=== PATIENT | female | born 1930 | race Caucasian/White ===

== ENCOUNTER 2017-03-01 15:21 | Observation (INO) | payer OTHER ==
[~2017-03-01] VITALS: Ht 172.7 cm; Wt 90.7 kg
[~2017-03-01 15:21] MED LIST: ASPIR 8181 MG PO; ASPIRIN EC81 M1 PO; BUSPIRONE HCL10 M1 PO; CARDIZEM CD240 M1 PO; ELIQUIS5 M1 PO; KEFLEX500 MG PO; LEVOTHYROXINE0.1 M1 PO; LEVOTHYROXINE112 MCG PO; LOSARTAN POTASS50 M1 PO; LOSARTAN POTASS50 MG PO; NIFEDICAL XL30 MG PO; NIFEDIPINE ER30 M2 PO; ONDANSETRON HCL4 MG; PROAIR HFA8.5 GM INH; SYMBICORT 80-10.2 GM INH; VENLAFAXINE H37.5 M4 PO
--- NOTE | 2017-03-01 16:04 | ED DYSPNEA/ASTHMA COMPLAINT ---
History of Present Illness General Chief Complaint: Dyspnea (COPD, CHF, Other) Stated Complaint: DIFFICULTY BREATHING Source: patient, family, old records Exam Limitations: no limitations Allergies Coded Allergies: hydrochlorothiazide (Severe, PANCREATITIS 02/21/17) Reconcile Medications Albuterol Sulfate (Proair Hfa) 90 MCG HFA.AER.AD 1-2 PUF INH AD PRN RESP. ( Reported) Apixaban (Eliquis) 5 MG TABLET 5 MG PO BID Atrial Fibrilliation Aspirin (Ecotrin*) 81 MG TABLET.DR 1 TAB PO QAM HEART/BLOOD (Reported) Budesonide/Formoterol Fumarate (Symbicort 80-4.5 Mcg Inhaler) 80 MCG-4.5 MCG/ ACTUATION HFA.AER.AD 2 PUF INH BID SOB/BRONCHITIS (Reported) Buspirone HCl 10 MG TABLET 1 TAB PO BID MENTAL HEALTH (Reported) Diltiazem HCl (Cardizem Cd) 240 MG CAP.ER.24H 240 MG PO DAILY Atrial Fibrilliation Levothyroxine Sodium 112 MCG TABLET 1 TAB PO DAILY THYROID (Reported) Losartan Potassium 50 MG TABLET 1 TAB PO BID BP (Reported) Venlafaxine HCl (Venlafaxine HCl ER) 37.5 MG CAP.ER.24H 1 CAP PO QPM MENTAL HEALTH (Reported) Triage Note: PT TO TRIAGE WITH HER DAUGHTER PT WAS DISCHARGED THURSDAY AFTER 1 WEEK IN PATIENT FOR NEW ONSET AFIB, PT RETURNS TODAY DUE TO SOB/ O2 SAT 94 % ON RA, PT COMPLAINS OF NAUSEA AND FEELING SOB. DENIES CP. PT TAKES XARELTO Triage Nurses Notes Reviewed? yes Onset: Gradual Duration: day(s): Timing: recent history Severity: moderate : No Patient currently breastfeeds: No HPI: 86-year-old female with history of recent diagnosis of A. fib on our question diltiazem presents to emergency department complaining of shortness of breath and "sick" feeling. Patient states that her symptoms feel similar to the last time she was here on 02/21/17. Patient was admitted on that day for new onset A. fib, cardioversion was attempted which was unsuccessful. The patient was discharged on 02/27/17 which time she had felt slightly better however her symptoms have worsened again despite her new medications. She states that she feels nauseous with abdominal pain and upper abdomen, the same feeling as her last visit. Shortness of breath is sometimes worse with exertion. The patient denies chest pain, fall, syncope, lower leg swelling, vomiting, diarrhea. (Kristina Shaw) Vital Signs & Intake/Output Vital Signs & Intake/Output Vital Signs Date Time Temp Pulse Resp B/P B/P Pulse O2 O2 Flow FiO2 Mean Ox Delivery Rate 03/02 0030 104 130/58 03/01 2300 97.1 104 20 130/58 96 Nasal 2.0L Cannula 03/01 2259 96.2 101 16 139/71 94 Nasal 2.0L Cannula 03/01 2130 97.9 107 24 120/68 92 Nasal 2.0L Cannula 03/01 1827 97.8 98 20 181/85 98 Nasal Cannula 03/01 1547 Nasal 2.0L Cannula 03/01 1528 97.0 100 20 144/88 94 Room Air ED Intake and Output 03/02 0000 03/01 1200 Intake Total 0 Output Total Balance 0 Intake, Oral 0 Patient 200 lb Weight (Yamilet MEIER,Khadar Shell) Past History Travel History Traveled to [place] past 21 day No Medical History Any Pertinent Medical History? 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 SON (ID). Hx Contributory? No (Kristina Shaw) Review of Systems Review of Systems Constitutional: Reports: no symptoms. EENTM: Reports: no symptoms. Respiratory: Reports: see HPI. Cardiovascular: Reports: see HPI. GI: Reports: see HPI. Genitourinary: Reports: no symptoms. Musculoskeletal: Reports: no symptoms. Skin: Reports: no symptoms. Neurological/Psychological: Reports: no symptoms. Hematologic/Endocrine: Reports: no symptoms. Immunologic/Allergic: Reports: no symptoms. All Other Systems: Reviewed and Negative (Kristina Shaw) Physical Exam Physical Exam General Appearance: well developed/nourished, no apparent distress, alert, awake Head: atraumatic, normal appearance Eyes: Bilateral: normal appearance. Ears, Nose, Throat: hearing grossly normal Neck: normal inspection, supple, full range of motion Respiratory: normal breath sounds, no respiratory distress, faint crackles bilateral posterior lung bases Cardiovascular: tachycardia, irregularly irregular Peripheral Pulses: 2+ radial (R), 2+ radial (L) Gastrointestinal: normal bowel sounds, soft, non-tender, no organomegaly, exam limited d/t obesity Extremities: normal inspection, normal range of motion, 1+ edema bilateral lower extremities Neurologic/Psych: awake, alert, oriented x 3 Skin: intact, normal color, warm/dry Core Measures ACS in differential dx? Yes CVA/TIA Diagnosis No Sepsis Present: No Sepsis Focused Exam Completed? No (Stormy CHAMPION,Kristina Gaytan) Progress Differential Diagnosis: asthma, AMI, bronchitis, CHF, COPD, pulmonary embolism, pneumonia, unstable angina, atrial fibrillation Diagnostic Imaging: Viewed by Me: Radiology Read. Discussed w/RAD: Radiology Read. Radiology Impression: PATIENT: VIRGIE MENDES PRESENT AGE: 86 PATIENT ACCOUNT NO: [id number] : 31 LOCATION: [facility] ORDERING PHYSICIAN: Kristina CHAMPION SERVICE DATE: 03/01/17 EXAM TYPE: RAD - XRY-PORTABLE CHEST XRAY EXAMINATION: XR PORTABLE CHEST CLINICAL INFORMATION: Dyspnea. COMPARISON: Chest radiographs 02/21/2017, 01/19/2017. TECHNIQUE: Portable AP view of the chest was obtained. FINDINGS: There is opacity right base likely combination of atelectasis and airspace consolidation. There is small linear disc atelectasis or scar inferior lingula on left. Mild increased bibasilar attenuation is likely due to superimposed overlying soft tissues. Possibility of trace right effusion cannot be excluded. The heart is enlarged but unchanged from prior study. The vascularity is normal. The hilar and mediastinal contours and bony structures are stable. IMPRESSION: Opacity right base likely combination of atelectasis and airspace consolidation. Possible trace right effusion. DICTATED BY: Jean Paul Hansen MD DATE/TIME DICTATED:1656 CHANGE MANAGEMENT ADMINISTRATOR:RAE DATE/TIME TRANSCRIBED:12/17/17 / 1657 CONFIDENTIAL, DO NOT COPY WITHOUT APPROPRIATE AUTHORIZATION. <Electronically signed in Other Vendor System> SIGNED BY: Jean Paul Hansen MD 03/01/17 1704 Initial ED EKG: atrial fibrillation @107bpm, nonspecific ST changes Prior EKG: unchanged (02/25/17) (Stormy CHAMPION,Kristina Gaytan) Plan of Care: Orders Procedure Date/time Status Nothing by Mouth 03/02 B Active TROPONIN LEVEL 03/02 0535 Active EKG 03/02 0535 Active LOWER RESPIRATORY CULTURE 03/02 0130 Active BLOOD CULTURE 03/02 0130 Active Vital Signs 03/02 011 Active Teach/Educate 03/02 117 Active Pain Treatment and Response 03/02 117 Active Nutritional Intake, Monitor 03/02 117 Active Isolation 03/02 117 Active Intake & Output 03/02 117 Active Patient Care Conference 03/02 117 Active Activity/Ambulation 03/02 117 Active TRC EVALUATION (GEN) 03/02 UNK Active Heart Healthy Diet 03/01 D Complete TROPONIN LEVEL 03/01 2335 Complete EKG 03/01 2335 Active RAPID VIRAL INFLUENZA A 03/01 2222 Complete INCENTIVE SPIROMETRY TRX (GEN) 03/01 2135 Active Add-on Test (ER Only) 03/01 2134 Active Pathway - chart 03/01 2046 Active House Staff 03/01 2046 Active Patient Data 03/01 2046 Active Patient Data 03/01 2022 Active Saline Lock 03/[address] in observation 03/01 2010 Active Misc Message 03/01 2010 Active ED Holding Orders 03/01 2010 Active Vital Signs 03/01 2010 Active Code Status 03/01 2010 Active LACTIC ACID 03/01 1735 Complete B-TYPE NATRIURETIC PEP (BNP) 03/01 1735 Complete Telemetry/Engraving Patternmaker 03/01 1604 Active TROPONIN LEVEL 03/01 1604 Complete LIPASE 03/01 1604 Complete COMPREHENSIVE METABOLIC PANEL 03/01 1604 Complete CBC WITHOUT DIFFERENTIAL 03/01 1604 Complete Intake & Output 03/01 1551 Active EKG 03/01 1522 Active VTE Mechanical Prophylaxis 03/01 UNK Active Vital Signs 03/01 UNK Active MISTAKE 03/01 UNK Active Telemetry/Engraving Patternmaker 03/01 UNK Active Intake & Output 03/01 UNK Active [facility] Coma Scale 03/01 UNK Active Current Medications Sig/Peter Start time Last Medication Dose Stop Time Status Admin Aspirin Buffered 81 MG QAM 03/02 1000 AC (Ecotrin) Azithromycin 500 MG DAILY 03/02 1000 AC (Zithromax) 03/06 1059 Sodium Chloride 250 ML (Normal Saline 0.9%) Diltiazem HCl 240 MG DAILY 03/02 1000 AC (Cardizem CD) Levothyroxine Sodium 0.112 MG DAILY AC 03/02 0700 AC (Synthroid) Venlafaxine HCl 37.5 MG QPM 03/02 0145 AC 03/02 (Effexor Xr) 0200 Losartan Potassium 50 MG BID 03/01 2315 AC 03/02 (Cozaar) 0030 Methylprednisolone 40 MG Q12 03/01 2307 AC 03/02 (Solumedrol) 0030 Apixaban 5 MG BID 03/01 2240 AC 03/02 (Eliquis) 0030 Buspirone HCl 10 MG BID 03/01 2240 AC 03/02 (Buspar) 0030 Omeprazole 40 MG DAILY 03/01 2145 AC 03/02 (Prilosec) 0030 Laboratory Tests 03/02/17 0120: Troponin I < 0.01 03/01/17 1735: Anion Gap 17 H, Estimated GFR 47 L, BUN/Creatinine Ratio 11.8, Glucose 113 H, Lactic Acid 1.2, Calcium 9.5, Total Bilirubin 0.5, AST 16, ALT 28, Alkaline Phosphatase 107, Troponin I < 0.01, Bpv-I-Rsnghnrafhx Pept 3240 H, Total Protein 7.0, Albumin 3.8, Globulin 3.2, Albumin/Globulin Ratio 1.2, Lipase 67, CBC w Diff NO MAN DIFF REQ, RBC 4.90, MCV 78.5 L, MCH 25.0 L, RDW 15.6 H, MPV 9.5, Gran % 79.7 H, Lymphocytes % 9.8 L, Monocytes % 10.1 H, Eosinophils % 0.1, Basophils % 0.3, Absolute Granulocytes 8.8 H, Absolute Lymphocytes 1.1 L, Absolute Monocytes 1.1 H, Absolute Eosinophils 0, Absolute Basophils 0, PUBS MCHC 31.8 L Microbiology 03/02 013 LOWER RESP: Respiratory Culture - ORD 03/02 130 LOWER RESP: Gram Stain - ORD 03/02 130 BLOOD: Blood Culture - ORD 03/02 130 BLOOD: Blood Culture - ORD 12/17 2310 NASOPHARYN: Influenza Virus A & B Rapid Smear - COMP Patient's associated without acute abnormality. Patient's labs are within normal limits, troponin negative. Patient's EKG shows controlled atrial fibrillation. Patient oxygenation dropped to 89% with ambulation and her heart rate was 120 bpm. Patient was symptomatic with dyspnea. This patient will likely require telemetry observation given her symptoms and persistent atrial fibrillation. Spoke with Dr. Mcintosh regarding this patient who will consult. Called case management. Dr. Castillo spoke with Dr. Moreno regarding this patient's telemetry observation. (Kristina Shaw) (Yamilet MEIER,Khadar Shell) Departure Departure Disposition: STILL A PATIENT Condition: Stable Clinical Impression Primary Impression: Atrial fibrillation Qualifiers: Atrial fibrillation type: unspecified Qualified Code: I48.91 - Unspecified atrial fibrillation Secondary Impressions: Abdominal pain Qualifiers: Abdominal location: unspecified location Qualified Code: R10.9 - Unspecified abdominal pain Dyspnea Qualifiers: Dyspnea type: dyspnea on exertion Qualified Code: R06.09 - Other forms of dyspnea Nausea Referrals: Jose Antonio Huynh MD (PCP/Family) Departure Forms: Customer Survey General Discharge Information Observation Note Spoke With: Abdias MEIER,[facility] Patient In: Non-ED OBS Care Area Rationale for Observation: My rational for observation is as follows [this patient requires telemetry observation. Patient with atrial fibrillation and dyspnea. Dyspnea is worse with ambulation, associated with low oxygen saturation of 89% and tachycardia, requires serial troponins, repeat EKGs, telemetry monitoring, cardiology consult , possible GI consult regarding abdominal pain]. (Kristina Shaw) PA/AIRCRAFT TIME CLERK Co-Sign Statement Statement: ED Attending supervision documentation- [X] I saw and evaluated the patient. I have also reviewed all the pertinent lab results and diagnostic results. I agree with the findings and the plan of care as documented in the PA's/AIRCRAFT TIME CLERK's documentation. Patient presents for evaluation of shortness of breath weakness and nausea and discomfort over the upper abdomen that began shortly after discharge from [facility] (patient was diagnosed with new-onset atrial fibrillation). Physical examination reveals no abdominal tenderness, clear lungs and irregular heart rate. [] I have reviewed the ED Record and agree with the PA's/AIRCRAFT TIME CLERK's documentation. [] Additions or exceptions (if any) to the PAs/AIRCRAFT TIME CLERK's note and plan are summarized below: [] (Yamilet MEIER,Khadar Shell) PA/AIRCRAFT TIME CLERK Co-Sign Statement Statement: ED Attending supervision documentation- [x] I saw and evaluated the patient. I have also reviewed all the pertinent lab results and diagnostic results. I agree with the findings and the plan of care as documented in the PA's/AIRCRAFT TIME CLERK's documentation. 03/01/17, 7:10pm... Pt with afib, hypoxia and tachycardia with ambulation, irregularly irregular on exam, pt merits observation for serial trops, monitoring, medication optimization. [] I have reviewed the ED Record and agree with the PA's/AIRCRAFT TIME CLERK's documentation. [] Additions or exceptions (if any) to the PAs/AIRCRAFT TIME CLERK's note and plan are summarized below: [] (Anna MEIER,Christoph Neal) Critical Care Note Critical Care Note Critical Care Time: non-applicable (Stormy CHAMPION,Kristina Gaytan)
--- NOTE | 2017-03-01 17:04 | RADIOLOGY REPORT ---
EXAMINATION: XR PORTABLE CHEST CLINICAL INFORMATION: Dyspnea. COMPARISON: Chest radiographs 02/21/2017, 01/19/2017. TECHNIQUE: Portable AP view of the chest was obtained. FINDINGS: There is opacity right base likely combination of atelectasis and airspace consolidation. There is small linear disc atelectasis or scar inferior lingula on left. Mild increased bibasilar attenuation is likely due to superimposed overlying soft tissues. Possibility of trace right effusion cannot be excluded. The heart is enlarged but unchanged from prior study. The vascularity is normal. The hilar and mediastinal contours and bony structures are stable. IMPRESSION: Opacity right base likely combination of atelectasis and airspace consolidation. Possible trace right effusion.
[2017-03-01 17:44] LABS: ABSOLUTE BASOPHIL COUNT 0 /CUMM (0.0-0.2); ABSOLUTE EOSINOPHIL COUNT 0 /CUMM (0.0-0.7); ABSOLUTE GRANULOCYTE CT 8.8 /CUMM (1.4-6.5); ABSOLUTE LYMPH COUNT 1.1 /CUMM (1.2-3.4); ABSOLUTE MONOCYTE COUNT 1.1 /CUMM (0.10-0.60); BASOPHIL % 0.3 % (0.0-2.0); EOSINOPHIL % 0.1 % (0-5); GRANULOCYTE % 79.7 % (42.2-75.2); HEMATOCRIT 38.5 % (37-47); MEAN CORPUSCULAR HGB CONC 31.8 G/DL (33.0-37.0); MEAN CORPUSCULAR VOLUME 78.5 FL (81.0-99.0); MEAN PLATELET VOLUME 9.5 FL (7.4-10.4); PLATELET COUNT 455 /CUMM (130-400); RBC DISTRIBUTION WIDTH 15.6 % (11.5-14.5)
--- NOTE | 2017-03-01 20:31 | History & Physical ---
Socorro Duncan 03/01/17 2030: General Information and HPI MD Statement: I have seen and personally examined VIRGIE MENDES and documented this H&P. Source of Information: patient, old records Exam Limitations: no limitations History of Present Illness: This is an 86-year-old lady with past medical history significant for recently diagnosed atrial fibrillation, hypertension, hypothyroidism, chronic back pain, discharge from [facility] 02/27/2017 for new-onset atrial fibrillation w/ RVR who presents to the [facility] with worsening of dyspnea. She presented to [facility] recently on 02/21/2017 for nonspecific abdominal pain and nausea was noted to be in atrial fibrillation with RVR. She underwent a trial of cardioversion which was unsuccessful. The patient states that her symptoms including nausea and nonspecific abdominal pain improved while she stayed in the hospital however started worsening after her discharge. She reports having nausea with mild abdominal generalized discomfort. She developed new-onset dyspnea which is worsened with movement. She also had cough with clear/white colored sputum. She reports having one episode of vomitus one day prior to her presentation, feels nauseated at the time of our interview. She denies any fever, chills, headache, dizziness, lightheadedness, episode of syncope, chest pain, chest discomfort, palpitation, urinary symptoms, lower extremity edema, diarrhea. Allergies/Medications Allergies: Coded Allergies: hydrochlorothiazide (Severe, PANCREATITIS 02/21/17) Home Med list Albuterol Sulfate (Proair Hfa) 90 MCG HFA.AER.AD 1-2 PUF INH AD PRN RESP. ( Reported) Apixaban (Eliquis) 5 MG TABLET 5 MG PO BID Atrial Fibrilliation Aspirin (Ecotrin*) 81 MG TABLET.DR 1 TAB PO QAM HEART/BLOOD (Reported) Budesonide/Formoterol Fumarate (Symbicort 80-4.5 Mcg Inhaler) 80 MCG-4.5 MCG/ ACTUATION HFA.AER.AD 2 PUF INH BID SOB/BRONCHITIS (Reported) Buspirone HCl 10 MG TABLET 1 TAB PO BID MENTAL HEALTH (Reported) Diltiazem HCl (Cardizem Cd) 240 MG CAP.ER.24H 240 MG PO DAILY Atrial Fibrilliation Levothyroxine Sodium 112 MCG TABLET 1 TAB PO DAILY THYROID (Reported) Losartan Potassium 50 MG TABLET 1 TAB PO BID BP (Reported) Venlafaxine HCl (Venlafaxine HCl ER) 37.5 MG CAP.ER.24H 1 CAP PO QPM MENTAL HEALTH (Reported) Past History Travel History Traveled to [place] past 21 day No Medical History Neurological: NONE EENT: NONE Cardiovascular: hypertension Respiratory: NONE Gastrointestinal: pancreatitis Hepatic: NONE Renal: NONE Musculoskeletal: rheumatoid arthritis Psychiatric: anxiety Endocrine: NONE Blood Disorders: NONE Cancer(s): NONE 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 SON (SD). Psychosocial History ETOH Use: denies use Illicit Drug Use: denies illicit drug use Functional Ability Ambulation: cane, walker Review of Systems Review of Systems Constitutional: Denies: chills, diaphoresis, fever, malaise, weakness, unexplained weight loss. EENTM: Reports: no symptoms. Denies: nasal congestion. Cardiovascular: Denies: chest pain, edema, orthopena, palpitations, peripheral edema, syncope. Respiratory: Reports: cough, short of breath. Denies: hemoptysis, orthopnea, sputum production, stridor, wheezing. GI: Reports: see HPI. Genitourinary: Reports: no symptoms. Musculoskeletal: Reports: no symptoms. Skin: Reports: no symptoms. Neurological/Psychological: Reports: no symptoms. Hematologic/Endocrine: Reports: no symptoms. Immunologic/Allergic: Reports: no symptoms. All Other Systems: Reviewed and Negative Exam & Diagnostic Data Last 24 Hrs of Vital Signs/I&O Vital Signs Date Time Temp Pulse Resp B/P B/P Pulse O2 O2 Flow FiO2 Mean Ox Delivery Rate 03/01 2259 96.2 101 16 139/71 94 Nasal 2.0L Cannula 03/01 2130 97.9 107 24 120/68 92 Nasal 2.0L Cannula 03/01 1827 97.8 98 20 181/85 98 Nasal Cannula 03/01 1547 Nasal 2.0L Cannula 03/01 1528 97.0 100 20 144/88 94 Room Air Intake & Output 03/02 0800 03/02 0000 03/01 1600 Intake Total 0 Output Total Balance 0 Intake, Oral 0 Patient 200 lb Weight Physical Exam General Appearance Alert, Oriented X3, Cooperative, No Acute Distress Skin No Rashes Skin Temp/Moisture Exam: Warm/Dry Sepsis Skin Exam (color): Normal for Ethnicity HEENT Atraumatic, PERRLA, EOMI, Mucous Membr. moist/pink Neck Supple, No JVD, No thryomegaly, +2 Carotid Pulse wo Bruit, No LAD Lymphatic Cervical nl Cardiovascular irregular, no murmur Lungs mild crackles bilaterally, without any expiratory wheezes, mild expiratory wheezes Abdomen Normal Bowel Sounds, Soft, No Tenderness, No Hepatospenomegaly, No Masses Neurological Normal Speech, Strength at 5/5 X4 Ext, Normal Tone, Sensation Intact, Cranial Nerves 3-12 NL, Reflexes 2+ Extremities No Clubbing, No Cyanosis, No Edema, Normal Pulses Vascular Normal Pulses, Pulses Symmetrical Last 24 Hrs of Labs/Surya: Laboratory Tests 03/01/17 1735: Anion Gap 17 H, Estimated GFR 47 L, BUN/Creatinine Ratio 11.8, Glucose 113 H, Calcium 9.5, Total Bilirubin 0.5, AST 16, ALT 28, Alkaline Phosphatase 107, Troponin I < 0.01, Total Protein 7.0, Albumin 3.8, Globulin 3.2, Albumin/ Globulin Ratio 1.2, Lipase 67, CBC w Diff NO MAN DIFF REQ, RBC 4.90, MCV 78.5 L , MCH 25.0 L, RDW 15.6 H, MPV 9.5, Gran % 79.7 H, Lymphocytes % 9.8 L, Monocytes % 10.1 H, Eosinophils % 0.1, Basophils % 0.3, Absolute Granulocytes 8.8 H, Absolute Lymphocytes 1.1 L, Absolute Monocytes 1.1 H, Absolute Eosinophils 0, Absolute Basophils 0, PUBS MCHC 31.8 L Microbiology 03/01 2310 NASOPHARYN: Influenza Virus A & B Rapid Smear - COMP Diagnostic Data EKG Results Atrial fibrillation, rate 107, PVCs, no ST-T wave abnormalities noted, no significant change noted from prior EKG, QTC 443. CXR Results IMPRESSION: Opacity right base likely combination of atelectasis and airspace consolidation. Possible trace right effusion. Assessment/Plan Assessment: 86-year-old lady with past medical history significant for recently diagnosed atrial fibrillation, status post unsuccessful cardioversion, hypertension, hyperthyroidism presents to the hospital with worsening of dyspnea since her discharge day on 02/27/2017. Labs positive for mild leukocytosis with granulocytosis. Has elevated creatinine, however is at her baseline. Problem list/plan: #Acute hypoxic respiratory failure: Presented with worsening of dyspnea. Could be secondary to acute bronchitis versus pericardial effusion versus pulmonary hypertension versus possible acute heart failure. 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 * The patient reported to her attending Dr. Calero that she had EGD done 5 years ago and was diagnosed with ulcers. * Will start the patient on omeprazole * Consider GI evaluation if no improvement. #History of atrial fibrillation: * Recently diagnosed, status post unsuccessful cardioversion * Will continue [employer] aspirin, apixaban, diltiazem #Will continue with [employer] buspirone, levothyroxine, losartan, venlafaxine #DVT prophylaxis: Being addressed by apixaban #CODE STATUS: Patient is full code As Ranked By This Provider Problem List: 1. Atrial fibrillation Qualifiers Atrial fibrillation type: unspecified Qualified Code: I48.91 - Unspecified atrial fibrillation 2. Dyspnea Qualifiers Dyspnea type: dyspnea on exertion Qualified Code: R06.09 - Other forms of dyspnea Core Measures/Misc (11/30) Acute Coronary Syndrome ACS Diagnosis: No Congestive Heart Failure Congestive Heart Failure Diagnosis Yes Last Known EF % 65 Cerebrovascular Accident CVA/TIA Diagnosis: No VTE (View Protocol) VTE Risk Factors Age>40 No Mechanical VTE Prophylaxis d/t N/A MechProphylax Ordered No VTE Pharm Prophylaxis d/t NA PharmProphylax ordered Sepsis (View protocol) Sepsis Present: No Abdias MEIER, [facility] 03/02/17 0721: Attending MD Review Statement Attending Statement Attending MD Statement: examined this patient, discuss w/resident/PA/SECONDARY SPECIAL EDUCATION TEACHER, agreed w/resident/PA/SECONDARY SPECIAL EDUCATION TEACHER, reviewed images, amended to note Attending Assessment/Plan: 86 yo F who resides in [place] and has been visiting her daughter in [place] for last few months, h/o HTN, hypothyroidism, depression, CKD stage 3, HCTZ induced pancreatitis, chronic back pain, discharged on Feb 27 from [place] after being diagnosed with new onset atrial fibrillation, failed attempt at cardioversion, initiated on eliquis and cardizem, returns today for persistent nausea, upper abdominal discomfort and dyspnea with productive cough. Patient reports she had come in for similar symptoms earlier this month, imaging was negative but her symptoms have not resolved. She reports having EGD at [place] where she was found to have gastric and intestinal ulcers which were treated with ?ablation. She was to take prilosec and it unclear if she is taking it. She denies heartburn, melena, BRBPR, dysphagia, odynophagia or hematemesis. She denies abdominal bloating, states she had a BM and is passing gas. She cannot define her abdominal discomfort. She also reports bronchitis symptoms for which she was treated with antibiotics and steroids, but her symptoms persist with cough productive of clear to white phlegm. She was noted to have sats 89% on RA on ER arrival. Vitals: afebrile, HR 90-100's, BP 120/68, sats 95% on 2L. Exam: AAO, dyspneic with minimal exertion, mild JVD. Chest b/l scattered expiratory wheeze, basilar crackles+. Heart S1S2 irregularly irregular, heart sounds are not muffled. Abd soft, NT. LE: trace edema. Labs: WBC 11, bicarb 21, AG 17, BUN 13, creat 1.1 (baseline), trop neg, proBNP 3240, lipase normal. CXR: opacity right base likely combination of atelectasis and airspace consolidation, possible trace right effusion. EKG: Afib, PVC's. Echo (2017): EF 60-65%, RVSP 44 mmHg, mild to moderate TR, moderate sized circumferential pericardial effusion, small to moderate size left pleural effusion. Assessment and plan: 1. Hypoxia 2. Dyspnea seems multifactorial 3. Mild congestive heart failure (diastolic type) in the setting of atrial fibrillation 4. Pulmonary hypertension with moderate tricuspid insufficiency 5. Moderate pericardial effusion without tamponade physiology per recent echo 6. Bronchitis with possible COPD exacerbation she has no definitive diagnosis of COPD, but has been a smoker in the past 7. Nausea, upper abdominal discomfort of unclear etiology 8. Leukocytosis likely reactive 9. CKD stable - 23 hour observation on telemetry - O2 supplementation to keep sats > 92% - Serial EKG and troponin to rule out Acs - IV lasix one time, reassess need for diuresis in AM - Cardio consult - TRC nebs, IST - Check sputum culture, flu swab - IV steroids with azithro for 5 days - Outpatient PFT and Pulm eval. - Initiate omeprazole - CT abd/pelvis during most recent admission was unrevealing - Consider GI consult to further assess her GI symptoms DVT ppx Eliquis. Full code. Observation Initial Note - I have personally examined VIRGIE MENDES on 03/02/17 at 0721. The disposition of VIRGIE MENDES is uncertain at this time and before a determination can be made, she requires a period of observation for the following reasons [exertional dyspnea, hypoxia, nausea]
[2017-03-01 23:00] VITALS: BP 130/58
[2017-03-02] VITALS: BP 130/58
--- NOTE | 2017-03-02 07:31 | PN-Observation ---
Hamlet MEIER,[facility] 03/02/17 0731: Observation Note Observation Note _ I have personally examined VIRGIE MENDES. her disposition is uncertain at this time. Before a determination can be made, she requires continued observation for the following reasons [abdominal pain]. Assessment/Plan Assessment: 86-year-old lady with past medical history significant for recently diagnosed atrial fibrillation, hypertension, hypothyroidism, chronic back pain, discharge from [facility] 02/27/2017 presents to the ED for dyspnea and abdominal pain. Problem List: 1. Abdominal pain Qualifiers Abdominal location: unspecified location Qualified Code: R10.9 - Unspecified abdominal pain Plan: Plan: Abdominal Pain: * Unclear in etiology at this time. Patient currently reports that her pain has subsided. Physical exam in unremarkable. * continue oral PPI Dyspnea: * CXR shows opacity in the right base with airspace consolidation. This could be concerning for pneumonia. She does have a white count. * Will d/c steroids * Continue Azithromycin for a total of 3 days. * Start IV lasix 20mg BID * Influenza test was negative * Will follow up sputum and blood cultures. History of Atrial Fibrilliation: * Continue Apixaban * Continue Cardizem Diet: * Heart Healthy DVT Prophylaxis: * On Apixaban Code Status: Full Code Subjective Follow-up For: Nonspecific abdominal pain Tele-Events Since Last Visit: A.fib with heart rate 90-120s. Subjective: Patient was seen and examined at bedside. Currently she is not in any acute distress or pain. She was discharged on Thursday evening and states she started having abdominal pain with some nausea and one episode of vomiting on Thursday which compelled her to come to the ER last night. Review of Systems Constitutional: Reports: no symptoms. Objective Last 24 Hrs of Vital Signs/I&O Vital Signs Date Time Temp Pulse Resp B/P B/P Pulse O2 O2 Flow FiO2 Mean Ox Delivery Rate 03/02 0800 95 Nasal 2.0L Cannula 03/02 0732 96.9 112 20 156/66 95 Nasal 2.0L Cannula 03/02 0643 96.6 111 20 156/66 95 Nasal 2.0L Cannula 03/02 0030 104 130/58 03/02 0000 97.1 104 20 130/58 98 Nasal 2.0L Cannula 03/01 2300 97.1 104 20 130/58 96 Nasal 2.0L Cannula 03/01 2259 96.2 101 16 139/71 94 Nasal 2.0L Cannula 03/01 2130 97.9 107 24 120/68 92 Nasal 2.0L Cannula 03/01 1827 97.8 98 20 181/85 98 Nasal Cannula 03/01 1547 Nasal 2.0L Cannula 03/01 1528 97.0 100 20 144/88 94 Room Air Intake & Output 03/02 1600 03/02 0800 03/02 0000 Intake Total Output Total Balance Patient 200 lb Weight Physical Exam General Appearance: Alert, Oriented X3, Cooperative, No Acute Distress Skin: No Rashes, No Breakdown Skin Temp/Moisture Exam: Warm/Dry Sepsis Skin Exam (color): Normal for Ethnicity HEENT: Atraumatic Cardiovascular: Normal S1, Normal S2, irregular Lungs: Clear to Auscultation, Normal Air Movement Abdomen: Soft, No Tenderness Neurological: Normal Speech Extremities: No Edema Felicia Avilez 03/02/17 1106: Attending Addendum Attending Brief Note Assessment and plan 1. Hypoxia 2. Dyspnea seems multifactorial 3. Mild congestive heart failure in the setting of atrial fibrillation 4. Pulmonary hypertension with moderate tricuspid insufficiency 5. Moderate pericardial effusion without tamponade physiology per recent echo 6. Acute Bronchitis 7. Nausea, upper abdominal discomfort of unclear etiology 8. Leukocytosis likely reactive 9. CKD stable Patient placed on observation telemetry and oxygen supplementation. She is receving diuretics, cardiology consulted. She is on her meds for rate control and eliquis for a/c. dc steroids for now, abx x3 days, cont current care. PT consult for dc planning.
[2017-03-02 07:32] VITALS: BP 156/66
--- NOTE | 2017-03-02 11:18 | Cons- Cardiology ---
General Information and HPI Consulting Request Date of Consult: 03/02/17 Requested By: Raghav MEIER,Felicia Reason for Consult: Atrial fibrillation History of Present Illness: The patient is an 86-year-old female with history of atrial fibrillation, status post failed cardioversion, with recent discharge from the hospital 3 days ago. She presents to the emergency department with complaint of shortness of breath. She also complains of nausea and abdominal discomfort. She complains of dyspnea which is increased with activity. She has a cough developed clear sputum. She complains of a single episode of vomiting, and persistent nausea. No fever or chills. No chest pain. No palpitations. No syncope. No edema. No diarrhea. Allergies/Medications Allergies: Coded Allergies: hydrochlorothiazide (Severe, PANCREATITIS 02/21/17) Home Med List: Albuterol Sulfate (Proair Hfa) 90 MCG HFA.AER.AD 1-2 PUF INH AD PRN RESP. ( Reported) Apixaban (Eliquis) 5 MG TABLET 5 MG PO BID Atrial Fibrilliation Aspirin (Ecotrin*) 81 MG TABLET.DR 1 TAB PO QAM HEART/BLOOD (Reported) Budesonide/Formoterol Fumarate (Symbicort 80-4.5 Mcg Inhaler) 80 MCG-4.5 MCG/ ACTUATION HFA.AER.AD 2 PUF INH BID SOB/BRONCHITIS (Reported) Buspirone HCl 10 MG TABLET 1 TAB PO BID MENTAL HEALTH (Reported) Diltiazem HCl (Cardizem Cd) 240 MG CAP.ER.24H 240 MG PO DAILY Atrial Fibrilliation Levothyroxine Sodium 112 MCG TABLET 1 TAB PO DAILY THYROID (Reported) Losartan Potassium 50 MG TABLET 1 TAB PO BID BP (Reported) Venlafaxine HCl (Venlafaxine HCl ER) 37.5 MG CAP.ER.24H 1 CAP PO QPM MENTAL HEALTH (Reported) Current Medications: Current Medications Sig/Peter Start time Last Medication Dose Route Stop Time Status Admin Apixaban 5 MG BID 03/01 2240 AC 03/02 PO 1015 Aspirin Buffered 81 MG QAM 03/02 1000 AC 03/02 PO 1015 Azithromycin 500 MG DAILY 03/02 1000 CAN Sodium Chloride 250 ML IV 03/06 1059 Azithromycin 500 MG DAILY 03/02 1000 AC 03/02 PO 1140 Buspirone HCl 10 MG BID 03/01 2240 AC 03/02 PO 1015 Diltiazem HCl 240 MG DAILY 03/02 1000 AC 03/02 PO 1015 Furosemide 20 MG DAILY 03/02 1000 AC 03/02 IV 1139 Furosemide 0 .STK-MED ONE 03/01 2300 DC IV Furosemide 20 MG ONCE ONE 03/01 2145 DC 03/01 IV 03/01 2146 2310 Levothyroxine Sodium 0.112 MG DAILY AC 03/02 0700 AC 03/02 PO 0645 Losartan Potassium 50 MG BID 03/02 1000 DC PO Losartan Potassium 0 .STK-MED ONE 03/02 0000 DC PO Losartan Potassium 50 MG BID 03/01 2315 AC 03/02 PO 1015 Methylprednisolone 40 MG Q12 03/01 2307 DC 03/02 IV 0030 Omeprazole 0 .STK-MED ONE 03/01 2359 DC PO Omeprazole 40 MG DAILY 03/015 AC 03/02 PO 1016 Ondansetron HCl 0 .STK-MED ONE 03/02 0132 DC .ROUTE Ondansetron HCl 4 MG ONCE ONE 03/02 0130 DC 03/02 IV 03/02 0131 0200 Venlafaxine HCl 37.5 MG QPM 03/02 2200 DC PO Venlafaxine HCl 37.5 MG QPM 03/02 0145 AC 03/02 PO 0200 Review of Systems Review of Systems: No rash. No tremor. No melena. All other systems were reviewed, and were noted to be negative. 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 SON (OR). Psychosocial History Smoking Status: Never Smoked ETOH Use: denies use Illicit Drug Use: denies illicit drug use Functional Ability Ambulation: cane, walker Exam & Diagnostic Data Vital Signs and I&O Vital Signs Date Time Temp Pulse Resp B/P B/P Pulse O2 O2 Flow FiO2 Mean Ox Delivery Rate 03/02 1822 98.0 105 20 146/80 96 Nasal Cannula 03/02 1600 94 Nasal 1.0L Cannula 03/02 1600 98.2 100 20 131/59 94 Nasal 1.0L Cannula 03/02 1015 112 156/84 03/02 0800 95 Nasal 2.0L Cannula 03/02 0732 96.9 112 20 156/66 95 Nasal 2.0L Cannula 03/02 0643 96.6 111 20 156/66 95 Nasal 2.0L Cannula 03/02 0030 104 130/58 03/02 0000 96 Nasal 2.0L Cannula 03/02 0000 97.1 104 20 130/58 98 Nasal 2.0L Cannula 03/01 2300 97.1 104 20 130/58 96 Nasal 2.0L Cannula 03/01 2259 96.2 101 16 139/71 94 Nasal 2.0L Cannula 03/01 2130 97.9 107 24 120/68 92 Nasal 2.0L Cannula Intake & Output 03/02 1600 03/02 0800 03/02 0000 03/01 1600 03/01 0800 03/01 0000 Intake Total 310 220 0 Output Total 700 450 Balance -390 -230 0 Intake, IV 10 20 Intake, Oral 300 200 0 Number 1 Bowel Movements Output, Urine 700 450 Patient 200 lb 200 lb Weight Physical Exam: Gen: The patient is in no acute distress HEENT: Normal nose, ears, and oropharynx. Pupils equal bilaterally. Conjunctiva normal. Neck: Supple with no JVD, no masses, and no thyromegaly Lungs: Clear to auscultation with normal respiratory effort Heart: RRR, S1, S2, no murmurs. No peripheral edema, 2+ pulses in the lower extremities bilaterally Abdomen: Soft, nontender, no masses. No hepatomegaly. No splenomegaly Extremities: No clubbing or cyanosis. Normal muscle strength in the upper and lower extremities Skin: Normal skin turgor with no skin ulcers or lesions noted. Neuro: Cranial nerves intact. Sensation intact Psych: Alert and oriented 3 with appropriate affect Labs/Surya Results: Laboratory Tests 03/02 03/02 03/01 0535 0120 1735 Chemistry Sodium (137 - 145 mmol/L) 140 Potassium (3.5 - 5.1 mmol/L) 4.3 Chloride (98 - 107 mmol/L) 102 Carbon Dioxide (22 - 30 mmol/L) 21 L Anion Gap (5 - 16) 17 H BUN (7 - 17 mg/dL) 13 Creatinine (0.5 - 1.0 mg/dL) 1.1 H Estimated GFR (>60 ml/min) 47 L BUN/Creatinine Ratio (7 - 25 %) 11.8 Glucose (65 - 99 mg/dL) 113 H Lactic Acid (0.7 - 2.1 mmol/L) 1.2 Calcium (8.4 - 10.2 mg/dL) 9.5 Total Bilirubin (0.2 - 1.3 mg/dL) 0.5 AST (14 - 36 U/L) 16 ALT (9 - 52 U/L) 28 Alkaline Phosphatase (<127 U/L) 107 Troponin I (< 0.11 ng/ml) < 0.01 < 0.01 < 0.01 [id number] Pept (<125 pg/mL) 3240 H Total Protein (6.3 - 8.2 g/dL) 7.0 Albumin (3.5 - 5.0 g/dL) 3.8 Globulin (1.9 - 4.2 gm/dL) 3.2 Albumin/Globulin Ratio (1.1 - 2.2 %) 1.2 Lipase (23 - 300 U/L) 67 Hematology CBC w Diff NO MAN DIFF REQ WBC (4.8 - 10.8 /CUMM) 11.0 H RBC (4.20 - 5.40 /CUMM) 4.90 Hgb (12.0 - 16.0 G/DL) 12.2 Hct (37 - 47 %) 38.5 MCV (81.0 - 99.0 FL) 78.5 L MCH (27.0 - 31.0 PG) 25.0 L RDW (11.5 - 14.5 %) 15.6 H Plt Count (130 - 400 /CUMM) 455 H MPV (7.4 - 10.4 FL) 9.5 Gran % (42.2 - 75.2 %) 79.7 H Lymphocytes % (20.5 - 51.1 %) 9.8 L Monocytes % (1.7 - 9.3 %) 10.1 H Eosinophils % (0 - 5 %) 0.1 Basophils % (0.0 - 2.0 %) 0.3 Absolute Granulocytes (1.4 - 6.5 /CUMM) 8.8 H Absolute Lymphocytes (1.2 - 3.4 /CUMM) 1.1 L Absolute Monocytes (0.10 - 0.60 /CUMM) 1.1 H Absolute Eosinophils (0.0 - 0.7 /CUMM) 0 Absolute Basophils (0.0 - 0.2 /CUMM) 0 PUBS MCHC (33.0 - 37.0 G/DL) 31.8 L Diagnostic Data EKG Results EKG tracing is reviewed, and reveals atrial flutter ablation with ventricular response of 106, inferior infarct age undetermined CXR Results Opacity right base likely combination of atelectasis and airspace consolidation. Possible trace right effusion. Other Results Echocardiogram 02/22/17: 1. This was a technically difficult study due to the patient's body habitus 2. Moderate aortic sclerosis is present with minimal aortic insufficiency 3. Thickening of the mitral leaflets is present with annular calcification and moderate mitral insufficiency with left atrial enlargement 4. Small to moderate sized circumferential pericardial effusion is present which appears to be hemodynamically insignificant. 5. The left ventricular chamber size is normal with hyperdynamic systolic function and no resting wall motion and modalities. 6. Mild to moderate tricuspid insufficiency is present with no evidence of significant pulmonary hypertension. 7. A follow-up examination is recommended when the patient's heart rate is better controlled to reassess mitral and tricuspid valve function. Assessment/Plan Assessment/Plan Assessment: 1. Atrial fibrillation, recent onset. Failed cardioversion 2. Acute diastolic CHF exacerbation 3. Bronchitis with possible COPD exacerbation Plan: * Lasix 20 mg IV every 12 hours * Monitor input and output with daily weights. * Check basic metabolic profile daily * Continue other cardiac medications Consult Acknowledgment - Thank you for your consult request.
--- NOTE | 2017-03-02 12:07 | PN- Student ---
Subjective Subjective: CC: Abdominal discomfort and SOB HPI: 86 year old female with a PMHx significant for HTN, HLD, hypothyroidism, non- occlusive CAD, cholecysectomy, drug-induced pancreatitis (hydrochlorothiazide), anxiety/depression, and recent admission for new onset atrial fibrillation, rate controlled on diltiazem, anticoagulated on Apixaban, s/p unsuccessful cardioversion, discharged on 02/27/17. Patient presented to [place] ED on for diffuse abdominal discomfort, nausea, and increasing shortness of breath. The patient states that one day after admission, she began having increased nausea and diffuse upper abdominal discomfort described as a "sick" feeling, which has been a prior on-going issue for the last few months. Previous antiemetic and PPI prescribed by her PCP provided limited relief however on prior admission, patient's abdominal symptoms were benign and had improved. Since discharge, nausea has returned and continues to cause patient great discomfort. She states that this discomfort is more localized to her right upper quadrant and epigastrium which increases upon movement. She reports having decreased appetite however denies vomiting, diarrhea, or constipation. Also denies any specific abdominal pain or tenderness. The patient also reports feeling more short of breath over the last 2 days. She has a recent history of bronchitis/URI, approximately 3 weeks ago, where she was prescribed antibiotics, and Albuterol and Spiriva inhaler by her PCP to assist with her breathing. The SOB increases with physical activity and is associated with a mild productive cough with clear sputum. She denies fever, chills, headache, dizziness, syncopal episodes, palpitations, LE edema, chest pain/ discomfrot, orthopnea, or urinary/bowel dysfunction. Of note, on her previous visit (02/22/17), patient received CTA chest which showed pulmonary HTN, and moderate pericardial effusion. CTA abdomen/pelvis showed occlusion of left renal artery and moderate sigmoid and distal descending colon diverticulosis without diverticulitis. No evidence of mesenteric ischemia. Echocardiogram revealed right heart strain with increased pressures, moderate pericardial effusion, and LVEF of 60-65%. PMH -HTN -HLD -Drug induced (HCTZ) pancreatitis -RA -Anxiety/depression -Hypothyroidism -Chronic low back pain -Psoriasis -Duodenal ulcer -Gastric Errosions PSH -Cardiac catheterization -Cholecysectomy Allergies -HCTZ (severe pancreatitis) Home Medications Albuterol (Proair Hfa) [facility] 1-2 puf inhaler PRN Aspirin (Ecotrin) 81 mg tablet once daily Apixiban 5 mg tablet PO daily Budesonide/Formoterol (Symbicort) 80-4.5mcg inhaler 2 puffs PRN Buspirone 10 mg tablet- 1 tab PO BID Diltiazem 240 mg capsule PO daily Levothyroxine 112mcg tablet - 1 tab PO daily Losartan Potassium 50mg tablet - 1 tab PO BID Ondansetron (unknown strength/dose) Venlafaxine (ER) 37.5mg capsule - 1 capsule PO qpm Current Medications Sig/Peter Start time Last Medication Dose Stop Time Status Admin Apixaban 5 MG BID 03/01 2240 AC 03/02 (Eliquis) 1015 Aspirin Buffered 81 MG QAM 03/02 1000 AC 03/02 (Ecotrin) 1015 Azithromycin 500 MG DAILY 03/02 1000 CAN (Zithromax) 03/06 1059 Sodium Chloride 250 ML (Normal Saline 0.9%) Azithromycin 500 MG DAILY 03/02 1000 AC (Zithromax) Buspirone HCl 10 MG BID 03/01 2240 AC 03/02 (Buspar) 1015 Diltiazem HCl 240 MG DAILY 03/02 1000 AC 03/02 (Cardizem CD) 1015 Furosemide 20 MG DAILY 03/02 1000 AC (Lasix) Levothyroxine Sodium 0.112 MG DAILY AC 03/02 0700 AC 03/02 (Synthroid) 0645 Losartan Potassium 50 MG BID 03/01 2315 AC 03/02 (Cozaar) 1015 Omeprazole 40 MG DAILY 03/01 2145 AC 03/02 (Prilosec) 1016 Venlafaxine HCl 37.5 MG QPM 03/02 0145 AC 03/02 (Effexor Xr) 0200 Family History -Sister (DM, CVD) -Son (MO) Social History -Denies alcohol use -Denies tobacco use -Denies illicit drug use -Lives in [place]; currently visiting and staying with daughter -Uses rolling walker- has ramp into home, then one level -Independent -No recent travel outside the country Review of Systems Constitutional: See HPI - malaise, weakness, fatigue HEENT: Denies VALLE, vision changes, hearing changes, dizziness Cardiovascular: See HPI Respiratory: Intermittent productive cough, clear sputum. Denies hemoptysis, orthopnea, difficulty breathing GI: See HPI. Denies consitpation, diarrhea, bloody stools : Denies dysuria, frequency, hematuria, burning MSK: Reports low back pain, denies arthralgias Neuro: Denies memory loss, unsteady gait, or focal neuro deficits Skin: Has psoriasis - denies new lesions Objective Objective: Vital Signs Date Time Temp Pulse Resp B/P B/P Pulse O2 O2 Flow FiO2 Mean Ox Delivery Rate 03/02 1015 112 156/84 03/02 0800 95 Nasal 2.0L Cannula 03/02 0732 96.9 112 20 156/66 95 Nasal 2.0L Cannula 03/02 0643 96.6 111 20 156/66 95 Nasal 2.0L Cannula 03/02 0030 104 130/58 03/02 0000 96 Nasal 2.0L Cannula 03/02 0000 97.1 104 20 130/58 98 Nasal 2.0L Cannula 03/01 2300 97.1 104 20 130/58 96 Nasal 2.0L Cannula 03/01 2259 96.2 101 16 139/71 94 Nasal 2.0L Cannula 03/01 2130 97.9 107 24 120/68 92 Nasal 2.0L Cannula 03/01 1827 97.8 98 20 181/85 98 Nasal Cannula 03/01 1547 Nasal 2.0L Cannula 03/01 1528 97.0 100 20 144/88 94 Room Air Intake & Output 03/02 1600 03/02 0800 03/02 0000 Intake Total 220 Output Total 450 Balance -230 Intake, IV 20 Intake, Oral 200 Output, Urine 450 Patient 200 lb Weight Physical Exam General appearance: Sleeping prior to exam. AOx3. Well-appearing, no apparent distress. HEENT: AT/NC. Conjunctiva clear, sclera white. EMOI. Nasal canals patent. Gross hearing intact. Neck: Trachea midline. Supple. No lymphadenopathy. No JVD. No thyromegaly. Carotid pulses 2+ bilaterally, no bruits. Chest: Lungs CTA bilaterally. No wheezes, rales, rhonchi. Heart: Diminished heart sounds. Irregularly irregular. Normal S1, S2. No murmurs , rubs, or gallops appreciated. Abdomen: Protuberant. Non-distended. Normoactive bowel sounds. Soft, NTTP, no obvious masses. No organomegaly. : Deferred. MSK: AROM of upper and lower extremities full and painless. Strength of LE 5/5, bilaterally. No lower extremity edema. No cyanosis. Skin: 5 cm x 5 cm dry patch, mildy erythematous with silver scale on low back. Warm and dry. Neuro: Appropriate speech and eye contact. Good affect. CN 3-12 intact. No focal neuro deficits. Results Results: Laboratory Tests 03/02/17 0535: Troponin I < 0.01 03/02/17 0120: Troponin I < 0.01 03/01/17 1735: Anion Gap 17 H, Estimated GFR 47 L, BUN/Creatinine Ratio 11.8, Glucose 113 H, Lactic Acid 1.2, Calcium 9.5, Total Bilirubin 0.5, AST 16, ALT 28, Alkaline Phosphatase 107, Troponin I < 0.01, Zie-[id number]-Hlngrkuewzk Pept 3240 H, Total Protein 7.0, Albumin 3.8, Globulin 3.2, Albumin/Globulin Ratio 1.2, Lipase 67, CBC w Diff NO MAN DIFF REQ, RBC 4.90, MCV 78.5 L, MCH 25.0 L, RDW 15.6 H, MPV 9.5, Gran % 79.7 H, Lymphocytes % 9.8 L, Monocytes % 10.1 H, Eosinophils % 0.1, Basophils % 0.3, Absolute Granulocytes 8.8 H, Absolute Lymphocytes 1.1 L, Absolute Monocytes 1.1 H, Absolute Eosinophils 0, Absolute Basophils 0, PUBS MCHC 31.8 L Microbiology 03/02 0550 BLOOD: Blood Culture - RECD 03/02 0535 BLOOD: Blood Culture - RECD 03/02 130 LOWER RESP: Respiratory Culture - COLB 03/02 130 LOWER RESP: Gram Stain - COLB 03/01 2310 NASOPHARYN: Influenza Virus A & B Rapid Smear - COMP Chest Radiograph Opacity right base likely combination of atelectasis and airspace consolidation. Possible trace right effusion. Assessment/Plan Assessment: 86 year old female with a PMHx significant for HTN, HLD, hypothyroidism, non- occlusive CAD, cholecysectomy, drug-induced pancreatitis, and recent admission for new onset atrial fibrillation, rate controlled on diltiazem s/p unsuccessful cardioversion, discharged on 02/27/17. Patient presented to [place] ED on for diffuse abdominal discomfort, nausea, and increasing shortness of breath. Labs signifcant for leukocytosis, granulocytosis, ProBNP elevated from previous visit to 3240 from 2630. Cardiac markers unremarkable. EKG reveals atrial fibrillation with no acute changes from previous. Chest X-ray shows probable consolodation and effusion of the right lower lobe. Patient is currently afebrile and saturating 95% on 2L oxygen via nasal cannula and has been admitted to telemetry observation for suspected acute exacerbation of congestive heart failure. In the ED, the patient was found to have bilaterally basalar crackles, wheezing, and pulmonary consolidation on CXR indicating probable acute CHF exacerbation. She was given 20mg Lasix x1 dose, Solumedraol 40mg IV, and also given her leukocytosis, she received Azithromycin 500mg IV, which has now transitioned to PO. Differential Diagnosis 1. Acute Congestive Heart Failure 2. Pneumonia 3. Bronchitis 4. Asthma 5. Mesenteric Ischemia 6. Peptic Ulcer Disease 7. Pulmonary Embolism 8. Acute MO Plan: #1. CHF Exacerbation * Continue Lasix 20mg IV for fluid retention (monitor LFTs) * Cardio consult pendning * Continue tele observation * Serial troponins unremarkable for ACS #2. Dyspnea * Currently on supplemental oxygen, 2L NC -- taper O2 as day progresses * TRC evaluation pending -- nebs PRN * Discontinue Solumedrol * Negative flu swab, sputum and blood cultures pending * Continue azithromycin 500mg PO daily x3 more days * CTA chest on prior admission unremarkable * Consider outpatient PFTs and pulmonology f/u #3. Abdominal Discomfort/Nausea * CTA abdomen and pelvis done on prior admission 02/22 was unremarkable * Continue omeprazole * Continue Ondansetron * Consider GI consult if patient's symptoms do not improve * Discontinue NPO and start patient on heart healthy diet, thin fluids #4. New Onset Atrial Fibrillation with Rapid Ventricular Rate * Continue Diltiazem PO once daily (240mg). * Continue Apixaban 5mg PO BID * Continue Aspirin. * Patient remains on telemonitor - continue serial EKGs #5. Hypertension * Continue Losartan Potassium #6. Hypothyroidism * Continue Levothyroxine #7. Anxiety/Depression * Continue Buspirone HCl * Continue Venlafaxine HCl XR Physical therapy evaluation pending. Patient awaiting transfer of care from ED to telemetry. Plan to observe for 24 hours on tele monitor. Code Status: FULL CODE DVT Prophylaxis: Apixiban (for AFIB) Diet: Heart healthy, fluid restriction Pain management PRN FLASH Powers
--- NOTE | 2017-03-02 14:53 | Patient Discharge Instructions ---
Discharge Instructions General Discharge Information You were seen/treated for: Atrial Fibrilliation Dyspnea Abdominal pain Special Instructions: Please follow up with your PCP within one week of discharge. 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 Please follow up with gastroenterology for GI related concerns. Diet Continue normal diet: Yes Recommended Diet: Heart Healthy Activity Full Activity/No Limits: Yes Acute Coronary Syndrome Inclusion Criteria At DC or during hospital stay patient has or had the following: ACS DIAGNOSIS No Discharge Core Measures Meds if any: Prescribed or Continued at Discharge Meds if any: NOT Prescribed or Continued at Discharge Congestive Heart Failure Inclusion Criteria At DC or during hospital stay patient has or had the following: CHF DIAGNOSIS No Discharge Core Measures Meds if any: Prescribed or Continued at Discharge Meds if any: NOT Prescribed or Continued at Discharge Cerebrovascular accident Inclusion Criteria At DC or during hospital stay patient has or had the following: CVA/TIA Diagnosis No Discharge Core Measures Meds if any: Prescribed or Continued at Discharge Meds if any: NOT Prescribed or Continued at Discharge Venous thromboembolism Inclusion Criteria VTE Diagnosis No VTE Type NONE VTE Confirmed by (Test) NONE Discharge Core Measures - Per Current guidelines, there needs to be overlap - treatment for the first 5 days of Warfarin therapy. - If discharged on Warfarin prior to 5 days of - overlap therapy, the patient will need to be - assessed for post discharge needs including - *Post discharge parental anticoagulation - *Warfarin and/or parental anticoagulation education - *Follow up date to check INR post discharge At least 5 days overlap therapy as Inpatient No Meds if any: Prescribed or Continued at Discharge Note: Overlap Therapy is Warfarin and Anticoagulant Meds if any: NOT Prescribed or Continued at Discharge
[2017-03-02 16:00] VITALS: BP 131/59
[2017-03-02 18:22] VITALS: BP 146/80
--- NOTE | 2017-03-02 20:09 | Cons- Cardiology ---
General Information and HPI Consulting Request Date of Consult: 03/02/17 Requested By: Raghav MEIER,Felicia Craig Reason for Consult: I was asked to see this patient in regards to rapidly conducted A. fib and congestive heart failure. She also has a significant pericardial effusion. Source of Information: patient, old records Exam Limitations: no limitations History of Present Illness: I was asked by Dr. Craig to see this patient in regards to atrial fibrillation in the setting of diastolic dysfunction congestive heart failure and a pericardial effusion. To review her history this lady has a history of significant anxiety, depression , hypothyroidism, chronic renal insufficiency, possible coronary artery disease, and rheumatoid arthritis. She is apparently not followed by a formal technical services rep. With this background she came in to the hospital on 02/21/2017 with increasing shortness of breath nausea and anorexia vomiting. An echocardiogram done on February 22 showed an EF of 60-65% with mild left atrial enlargement moderate MR and a small to moderate pericardial effusion. She had a CTA of the chest abdomen and pelvis which did show occlusion of one of the arteries one of her kidneys and in addition showed a moderate pericardial effusion and significant aortic atheroma. She underwent a chest esophageal echo on February 25 which showed mild to moderate MR there is a normal EF there was spontaneous echo contrast and left atrium the left atrium was enlarged. She will multiple tensa cardioversion which was unsuccessful in achieving sinus rhythm. She was discharged in anticoagulation and Cardizem for rate control. Next She returns today with increasing shortness of breath and anxiety. On admission she is found to have a BNP of 3240 and a sedimentation rate of 46. She continues to have A. fib with a fairly rapid ventricular response. Allergies/Medications Allergies: Coded Allergies: hydrochlorothiazide (Severe, PANCREATITIS 02/21/17) Home Med List: Albuterol Sulfate (Proair Hfa) 90 MCG HFA.AER.AD 1-2 PUF INH AD PRN RESP. ( Reported) Apixaban (Eliquis) 5 MG TABLET 5 MG PO BID Atrial Fibrilliation Aspirin (Ecotrin*) 81 MG TABLET.DR 1 TAB PO QAM HEART/BLOOD (Reported) Budesonide/Formoterol Fumarate (Symbicort 80-4.5 Mcg Inhaler) 80 MCG-4.5 MCG/ ACTUATION HFA.AER.AD 2 PUF INH BID SOB/BRONCHITIS (Reported) Buspirone HCl 10 MG TABLET 1 TAB PO BID MENTAL HEALTH (Reported) Diltiazem HCl (Cardizem Cd) 240 MG CAP.ER.24H 240 MG PO DAILY Atrial Fibrilliation Levothyroxine Sodium 112 MCG TABLET 1 TAB PO DAILY THYROID (Reported) Losartan Potassium 50 MG TABLET 1 TAB PO BID BP (Reported) Venlafaxine HCl (Venlafaxine HCl ER) 37.5 MG CAP.ER.24H 1 CAP PO QPM MENTAL HEALTH (Reported) Current Medications: Current Medications Sig/Peter Start time Last Medication Dose Route Stop Time Status Admin Apixaban 5 MG BID 03/01 2240 AC 03/02 PO 1015 Aspirin Buffered 81 MG QAM 03/02 1000 AC 03/02 PO 1015 Azithromycin 500 MG DAILY 03/02 1000 CAN Sodium Chloride 250 ML IV 03/06 1059 Azithromycin 500 MG DAILY 03/02 1000 AC 03/02 PO 1140 Buspirone HCl 10 MG BID 03/01 2240 AC 03/02 PO 1015 Diltiazem HCl 240 MG DAILY 03/02 1000 AC 03/02 PO 1015 Furosemide 20 MG 7:30 AM, & 4:30 PM 03/02 2000 AC IV Furosemide 20 MG DAILY 03/02 1000 DC 03/02 IV 1139 Furosemide 0 .STK-MED ONE 03/01 2300 DC IV Furosemide 20 MG ONCE ONE 03/01 2145 DC 03/01 IV 03/01 214 2310 Levothyroxine Sodium 0.112 MG DAILY AC 03/02 0700 AC 03/02 PO 0645 Losartan Potassium 50 MG BID 03/02 1000 DC PO Losartan Potassium 0 .STK-MED ONE 03/02 0000 DC PO Losartan Potassium 50 MG BID 03/01 2315 AC 03/02 PO 1015 Methylprednisolone 40 MG Q12 03/01 2307 DC 03/02 IV 0030 Omeprazole 0 .STK-MED ONE 03/01 2359 DC PO Omeprazole 40 MG DAILY 03/01 2145 AC 03/02 PO 1016 Ondansetron HCl 0 .STK-MED ONE 03/02 0132 DC .ROUTE Ondansetron HCl 4 MG ONCE ONE 03/02 0130 DC 03/02 IV 03/02 0131 0200 Venlafaxine HCl 37.5 MG QPM 03/02 2200 DC PO Venlafaxine HCl 37.5 MG QPM 03/02 0145 AC 03/02 PO 0200 Review of Systems Review of Systems: She notes SOB, nausea, anorexia, anxiety, visual disturbances Past History Travel History Traveled to [place] past 21 day No Medical History Neurological: NONE EENT: NONE Cardiovascular: hypertension Respiratory: NONE Gastrointestinal: pancreatitis Hepatic: NONE Renal: NONE Musculoskeletal: rheumatoid arthritis Psychiatric: anxiety Endocrine: NONE Blood Disorders: NONE Cancer(s): NONE 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 SON ([place]). Psychosocial History Smoking Status: Never Smoked ETOH Use: denies use Illicit Drug Use: denies illicit drug use Functional Ability Ambulation: cane, walker Exam & Diagnostic Data Vital Signs and I&O Vital Signs Date Time Temp Pulse Resp B/P B/P Pulse O2 O2 Flow FiO2 Mean Ox Delivery Rate 03/02 1822 98.0 105 20 146/80 96 Nasal Cannula 03/02 1600 94 Nasal 1.0L Cannula 03/02 1600 98.2 100 20 131/59 94 Nasal 1.0L Cannula 03/02 1015 112 156/84 03/02 0800 95 Nasal 2.0L Cannula 03/02 0732 96.9 112 20 156/66 95 Nasal 2.0L Cannula 03/02 0643 96.6 111 20 156/66 95 Nasal 2.0L Cannula 03/02 0030 104 130/58 03/02 0000 96 Nasal 2.0L Cannula 03/02 0000 97.1 104 20 130/58 98 Nasal 2.0L Cannula 03/01 2300 97.1 104 20 130/58 96 Nasal 2.0L Cannula 03/01 2259 96.2 101 16 139/71 94 Nasal 2.0L Cannula 03/01 2130 97.9 107 24 120/68 92 Nasal 2.0L Cannula Intake & Output 03/02 1600 03/02 0800 03/02 0000 03/01 1600 03/01 0800 03/01 0000 Intake Total 310 220 0 Output Total 700 450 Balance -390 -230 0 Intake, IV 10 20 Intake, Oral 300 200 0 Number 1 Bowel Movements Output, Urine 700 450 Patient 200 lb 200 lb Weight Physical Exam: General: Anxious, but otherwise well-appearing For vital signs, see above. Head: Normocephalic/atraumatic Eyes: No xanthelasma or scleral icterus Mouth: Moist mucous membranes without pallor or cyanosis Neck: No jugular venous distention, carotid bruits, thyromegaly Thorax/lungs: No chest deformity, lungs clear Cardiac: Normal S1, S2 without S3, S4, 2/6 ERICA, irreg. irreg. Abdomen: No tenderness or masses Extremities: No cyanosis, clubbing, or edema Neruo: Grossly nonfocal Skin: No major rashes Psychiatric: Normal mood and affect Labs/Surya Results: Laboratory Tests 03/02 03/02 03/01 0535 0120 1735 Chemistry Sodium (137 - 145 mmol/L) 140 Potassium (3.5 - 5.1 mmol/L) 4.3 Chloride (98 - 107 mmol/L) 102 Carbon Dioxide (22 - 30 mmol/L) 21 L Anion Gap (5 - 16) 17 H BUN (7 - 17 mg/dL) 13 Creatinine (0.5 - 1.0 mg/dL) 1.1 H Estimated GFR (>60 ml/min) 47 L BUN/Creatinine Ratio (7 - 25 %) 11.8 Glucose (65 - 99 mg/dL) 113 H Lactic Acid (0.7 - 2.1 mmol/L) 1.2 Calcium (8.4 - 10.2 mg/dL) 9.5 Total Bilirubin (0.2 - 1.3 mg/dL) 0.5 AST (14 - 36 U/L) 16 ALT (9 - 52 U/L) 28 Alkaline Phosphatase (<127 U/L) 107 Troponin I (< 0.11 ng/ml) < 0.01 < 0.01 < 0.01 Ehm-A-Nssfhcehhei Pept (<125 pg/mL) 3240 H Total Protein (6.3 - 8.2 g/dL) 7.0 Albumin (3.5 - 5.0 g/dL) 3.8 Globulin (1.9 - 4.2 gm/dL) 3.2 Albumin/Globulin Ratio (1.1 - 2.2 %) 1.2 Lipase (23 - 300 U/L) 67 Hematology CBC w Diff NO MAN DIFF REQ WBC (4.8 - 10.8 /CUMM) 11.0 H RBC (4.20 - 5.40 /CUMM) 4.90 Hgb (12.0 - 16.0 G/DL) 12.2 Hct (37 - 47 %) 38.5 MCV (81.0 - 99.0 FL) 78.5 L MCH (27.0 - 31.0 PG) 25.0 L RDW (11.5 - 14.5 %) 15.6 H Plt Count (130 - 400 /CUMM) 455 H MPV (7.4 - 10.4 FL) 9.5 Gran % (42.2 - 75.2 %) 79.7 H Lymphocytes % (20.5 - 51.1 %) 9.8 L Monocytes % (1.7 - 9.3 %) 10.1 H Eosinophils % (0 - 5 %) 0.1 Basophils % (0.0 - 2.0 %) 0.3 Absolute Granulocytes (1.4 - 6.5 /CUMM) 8.8 H Absolute Lymphocytes (1.2 - 3.4 /CUMM) 1.1 L Absolute Monocytes (0.10 - 0.60 /CUMM) 1.1 H Absolute Eosinophils (0.0 - 0.7 /CUMM) 0 Absolute Basophils (0.0 - 0.2 /CUMM) 0 PUBS MCHC (33.0 - 37.0 G/DL) 31.8 L Assessment/Plan Assessment/Plan My assessment is that this patient is complicated. I have no doubt that her A. fib is contributing to her congestive heart failure. She has mitral regurgitation and almost definitely diastolic dysfunction in these are being worsened by A. fib. However given her pericardial effusion and already failed attempts at cardioversion I am not optimistic that she will be able to maintain sinus rhythm. Certainly is very possible that her pericardial effusion which may be due to rheumatoid arthritis is causing her A. fib although obviously her age is the biggest factor. I would recommend a rheumatology consult to see if the thought is that she has rheumatoid effusion. Then she would need to be treated with anti- inflammatories. I would like to use colchicine in her case however she has mild renal dysfunction and in addition I wish to recommend amiodarone therapy which is essentially contraindicated with colchicine due to a major interaction. Again I would defer to rheumatology. Anakinra has been used successfully to treat both rheumatoid arthritis and associated pericardial effusions. I do think we should recommend amiodarone therapy for her. This obviously could be complicated given her rheumatoid arthritis and potential propensity to lung disease. However we do have a baseline CT which can be monitored. I would recommend beginning amiodarone 200 mg 3 times a day. She already has nausea and I would not wish to push too hard with this medication. I would recommend another attempt at cardioversion in a few days with amiodarone on board. Given her markedly elevated BNP and do think she should be aggressively diuresed with IV Lasix and probably the addition of Aldactone to preserve potassium. I would probably also increase her Cardizem to 300 mg daily for better rate control. Apparently she has significant carotid disease in addition to significant aortic atheroma and renal artery disease and it would be very reasonable for her to be on a PCS K-9 inhibitor as she has not tolerated statins in the past. This is not the acute issue but could be considered in the future. 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 Obviously another echo is indicated to rule out a hemorrhagic effusion on anticoagulation therapy. I think this is unlikely. Copies To: Almas MEIER,Gurmeet Mohamud; Zaheer Craig MD; Arnaldo MEIER,Emmanuel Consult Acknowledgment - Thank you for your consult request.
--- NOTE | 2017-03-02 21:41 | ULTRASOUND REPORT ---
EXAMINATION: US DUPLEX CAROTID AND VERTEBRAL CLINICAL INFORMATION: Transient loss of vision in the left eye. COMPARISON: None available. TECHNIQUE: Real-time ultrasound and Doppler techniques (integrating B-mode 2D vascular images, Doppler spectral analysis and color flow Doppler imaging) were utilized to interrogate the extracranial carotid and vertebral arteries bilaterally. The degree of stenosis determined by criteria similar to NASCET. FINDINGS: Right common carotid artery peak systolic velocities range between 50 and 72 cm/s with maximal end-diastolic velocity of 14 cm/s. Right internal carotid artery peak systolic velocities range between 94 and 127 cm/s with maximal and S-type velocity of 33 cm/s. Right external carotid artery peak systolic velocity is 151 cm/s with a maximal end-diastolic velocity of 17.3 cm/s. There is antegrade flow within the right vertebral artery. There is calcific atherosclerotic plaque at the right carotid bifurcation. Left common carotid artery peak systolic velocity ranges between 61 and 66 cm/s with maximal end-diastolic velocity of 13 cm/s. Left internal carotid artery peak systolic velocities range between 57 and 141 cm/s with maximal end-diastolic velocity of 47 cm/s. Left external carotid artery peak systolic velocity is 129 cm/s. There is antegrade flow within the left vertebral artery. There is calcific atherosclerotic disease of the left carotid bifurcation. IMPRESSION: There are 50-69% stenoses involving the internal carotid arteries bilaterally by sonographic criteria.
[2017-03-02 22:38] VITALS: BP 112/66
[2017-03-03 06:46] VITALS: BP 120/68
--- NOTE | 2017-03-03 07:19 | PN- Housestaff ---
Assessment/Plan Assessment: 86-year-old lady with past medical history significant for recently diagnosed atrial fibrillation, hypertension, hypothyroidism, chronic back pain, discharge from [facility] 02/27/2017 presents to the ED for dyspnea and abdominal pain.
[2017-03-03 08:24] LABS: ABSOLUTE BASOPHIL COUNT 0 /CUMM (0.0-0.2); ABSOLUTE EOSINOPHIL COUNT 0 /CUMM (0.0-0.7); ABSOLUTE GRANULOCYTE CT 11.6 /CUMM (1.4-6.5); ABSOLUTE LYMPH COUNT 1.6 /CUMM (1.2-3.4); ABSOLUTE MONOCYTE COUNT 1.8 /CUMM (0.10-0.60); BASOPHIL % 0.2 % (0.0-2.0); EOSINOPHIL % 0 % (0-5); GRANULOCYTE % 77.3 % (42.2-75.2); HEMATOCRIT 38.4 % (37-47); MEAN CORPUSCULAR HGB 25.1 PG (27.0-31.0); MEAN CORPUSCULAR VOLUME 78.2 FL (81.0-99.0); MEAN PLATELET VOLUME 9.9 FL (7.4-10.4); PLATELET COUNT 492 /CUMM (130-400); RBC DISTRIBUTION WIDTH 15.5 % (11.5-14.5); RED BLOOD CELL CT 4.91 /CUMM (4.20-5.40); WHITE BLOOD CELL COUNT 15.1 /CUMM (4.8-10.8)
--- NOTE | 2017-03-03 09:51 | PN-Observation ---
[place] MEIER,[facility] 03/03/17 0951: Observation Note Observation Note _ I have personally examined VIRGIE MENDES. her disposition is uncertain at this time. Before a determination can be made, she requires continued observation for the following reasons [dyspnea and nonspecific abdominal pain]. Assessment/Plan Assessment: 86-year-old lady with past medical history significant for recently diagnosed atrial fibrillation, hypertension, hypothyroidism, chronic back pain, discharge from [facility] 02/27/2017 presents to the ED for dyspnea and abdominal pain. Problem List: 1. Atrial fibrillation Qualifiers Atrial fibrillation type: unspecified Qualified Code: I48.91 - Unspecified atrial fibrillation Plan: Plan: Abdominal Pain: * Unclear in etiology. Patient reports that her pain has subsided since she came in. Physical exam in unremarkable. * continue oral PPI * It is possible that her abdominal pain could be attributed to her atrial fibrilliation Dyspnea: * CXR shows opacity in the right base with airspace consolidation. This could be concerning for pneumonia. * Repeat sputum culture. * Her white count has increased from yesterday but that could be from the steroids she received yesterday. * Continue Azithromycin for a total of 3 days. * Continue IV lasix 20mg BID * Influenza test was negative * Will follow up blood cultures. History of Atrial Fibrilliation: * Continue Apixaban * Increase Cardizem to 300mg * Start amiodarone 300mg TID for rhythm control * Repeat echocardiogram to assess for hemorrhagic pericardial effusion as she was started on anticoagulation. * will obtain rheumatology consult as her pericardial effusion could be due to her rheumatoid arthritis. * follow CARMELO, Anti CCP, Anti Rheumatoid Factor. Diet: * Heart Healthy DVT Prophylaxis: * On Apixaban Code Status: Full Code Subjective Follow-up For: Dyspnea Nonspecific abdominal pain Complaints: no complaints Tele-Events Since Last Visit: Continues to be in A.fib with HR in 70s to 90s. Subjective: Patient was seen and examined at bedside. She was off oxygen without any distress. Patient mentioned she took it off to have breakfast and forgot to put it back on. Currently, she denies any abdominal pain or shortness of breath. Review of Systems Constitutional: Reports: no symptoms. Objective Last 24 Hrs of Vital Signs/I&O Vital Signs Date Time Temp Pulse Resp B/P B/P Pulse O2 O2 Flow FiO2 Mean Ox Delivery Rate 03/03 0800 Nasal 1.0L Cannula 03/03 0646 98.0 96 20 120/68 94 Nasal Cannula 03/03 0444 100 130/72 03/03 0000 Nasal 1.0L Cannula 03/02 2238 97.5 95 20 112/66 96 Nasal Cannula 03/02 2137 92 118/70 03/02 2122 Nasal 1.0L Cannula 03/02 1822 98.0 105 20 146/80 96 Nasal Cannula 03/02 1600 94 Nasal 1.0L Cannula 03/02 1600 98.2 100 20 131/59 94 Nasal 1.0L Cannula Intake & Output 03/03 1600 03/03 0800 03/03 0000 Intake Total 332 615 Output Total 200 800 Balance -200 -468 615 Intake, IV 12 15 Intake, Oral 320 600 Output, Urine 200 800 Physical Exam General Appearance: Alert, Oriented X3, Cooperative, No Acute Distress Skin: No Rashes, No Breakdown Skin Temp/Moisture Exam: Warm/Dry Sepsis Skin Exam (color): Normal for Ethnicity HEENT: Atraumatic Cardiovascular: Normal S1, Normal S2, No Murmurs, irregular Lungs: Clear to Auscultation, Normal Air Movement Abdomen: Soft, No Tenderness Neurological: Normal Speech Extremities: No Edema Felicia Avilez 03/03/17 1317: Attending Addendum Attending Brief Note Assessment and plan 1. Hypoxia 2. Dyspnea seems multifactorial 3. Mild congestive heart failure in the setting of atrial fibrillation uncontrolled. 4. Pulmonary hypertension with moderate tricuspid insufficiency 5. Moderate pericardial effusion without tamponade physiology per recent echo 6. Acute Bronchitis resolving 7. Nausea, upper abdominal discomfort of unclear etiology 8. Leukocytosis likely reactive 9. CKD stable Patient placed on observation telemetry and oxygen supplementation as needed. She is receiving diuretics, cardiology recommend amiodarone and cardizem for better HR control. She is on her meds for rate control and eliquis for a/c. complete abx x3 days, consider rhematology consult ip vs op, cont current care. Patient anticipate dc tomorrow. FOLLOW UP PCP in 3-5 days of discharge Cardiology in 2 weeks of discharge.
--- NOTE | 2017-03-03 12:37 | PN- Cardiology ---
Subjective Subjective: Shortness of breath improving. No chest pain. No palpitations. No diaphoresis. No palpitations. She remains in atrial fibrillation with rate under control. Objective Vital Signs and I&Os Vital Signs Date Time Temp Pulse Resp B/P B/P Pulse O2 O2 Flow FiO2 Mean Ox Delivery Rate 03/03 0800 Nasal 1.0L Cannula 03/03 0646 98.0 96 20 120/68 94 Nasal Cannula 03/03 0444 100 130/72 03/03 0000 Nasal 1.0L Cannula 03/02 2238 97.5 95 20 112/66 96 Nasal Cannula 03/02 2137 92 118/70 03/02 2122 Nasal 1.0L Cannula 03/02 1822 98.0 105 20 146/80 96 Nasal Cannula 03/02 1600 94 Nasal 1.0L Cannula 03/02 1600 98.2 100 20 131/59 94 Nasal 1.0L Cannula Intake & Output 03/03 1600 03/03 0800 03/03 0000 03/02 1600 03/02 0800 03/02 0000 Intake Total 332 615 310 220 Output Total 200 800 700 450 Balance -200 -468 615 -390 -230 Intake, IV 12 15 10 20 Intake, Oral 320 600 300 200 Number 1 Bowel Movements Output, Urine 200 800 700 450 Patient 200 lb Weight Physical Exam: Gen: The patient is in no acute distress HEENT: Normal nose, ears, and oropharynx. Pupils equal bilaterally. Conjunctiva normal. Neck: Supple with no JVD, no masses, and no thyromegaly Lungs: Clear to auscultation with normal respiratory effort Heart: Irreg, S1, S2, 1/6 systolic murmur. Trace peripheral edema, 2+ pulses in the lower extremities bilaterally Abdomen: Soft, nontender, no masses. No hepatomegaly. No splenomegaly Extremities: No clubbing or cyanosis. Normal muscle strength in the upper and lower extremities Skin: Normal skin turgor with no skin ulcers or lesions noted. Neuro: Cranial nerves intact. Sensation intact Current Medications: Current Medications Sig/Peter Start time Last Medication Dose Route Stop Time Status Admin Amiodarone HCl 200 MG TID 03/03 0248 AC 03/03 PO 0444 Apixaban 5 MG BID 03/01 2240 AC 03/03 PO 0833 Aspirin Buffered 81 MG QAM 03/02 1000 AC 03/03 PO 0832 Azithromycin 500 MG DAILY 03/02 1000 AC 03/03 PO 0833 Buspirone HCl 10 MG BID 03/01 2240 AC 03/03 PO 0832 Diltiazem HCl 300 MG DAILY 03/03 1000 AC 03/03 PO 0832 Diltiazem HCl 240 MG DAILY 03/02 1000 DC 03/02 PO 1015 Furosemide 20 MG 7:30 AM, & 4:30 PM 03/02 2000 AC 03/03 IV 0636 Furosemide 20 MG DAILY 03/02 1000 DC 03/02 IV 1139 Levothyroxine Sodium 0.112 MG DAILY AC 03/02 0700 AC 03/03 PO 0638 Losartan Potassium 50 MG BID 03/01 2315 AC 03/03 PO 0832 Omeprazole 40 MG DAILY 03/01 2145 AC 03/03 PO 0833 Venlafaxine HCl 37.5 MG QPM 03/02 0145 AC 03/02 PO 2137 Results Last 48 Hrs of Labs/Mics: Laboratory Tests 03/03/17 0949: Sodium Cancelled, Potassium Cancelled, Chloride Cancelled, Carbon Dioxide Cancelled, Anion Gap Cancelled, BUN Cancelled, Creatinine Cancelled, BUN/ Creatinine Ratio Cancelled 03/03/17 0640: Anion Gap 17 H, Estimated GFR 36 L, BUN/Creatinine Ratio 13.6, Triglycerides 88, Cholesterol 154, LDL Cholesterol, Calc 79, HDL Cholesterol 58, Cholesterol/ HDL Ratio 3, CBC w Diff NO MAN DIFF REQ, RBC 4.91, MCV 78.2 L, MCH 25.1 L, RDW 15.5 H, MPV 9.9, Gran % 77.3 H, Lymphocytes % 10.3 L, Monocytes % 12.2 H, Eosinophils % 0, Basophils % 0.2, Absolute Granulocytes 11.6 H, Absolute Lymphocytes 1.6, Absolute Monocytes 1.8 H, Absolute Eosinophils 0, Absolute Basophils 0, PUBS MCHC 32.0 L 03/02/17 0535: Troponin I < 0.01 03/02/17 0120: Troponin I < 0.01 03/01/17 1735: Anion Gap 17 H, Estimated GFR 47 L, BUN/Creatinine Ratio 11.8, Glucose 113 H, Lactic Acid 1.2, Calcium 9.5, Total Bilirubin 0.5, AST 16, ALT 28, Alkaline Phosphatase 107, Troponin I < 0.01, Axt-L-Hctmyuxsicd Pept 3240 H, Total Protein 7.0, Albumin 3.8, Globulin 3.2, Albumin/Globulin Ratio 1.2, Lipase 67, CBC w Diff NO MAN DIFF REQ, RBC 4.90, MCV 78.5 L, MCH 25.0 L, RDW 15.6 H, MPV 9.5, Gran % 79.7 H, Lymphocytes % 9.8 L, Monocytes % 10.1 H, Eosinophils % 0.1, Basophils % 0.3, Absolute Granulocytes 8.8 H, Absolute Lymphocytes 1.1 L, Absolute Monocytes 1.1 H, Absolute Eosinophils 0, Absolute Basophils 0, PUBS MCHC 31.8 L Microbiology 03/01 2310 NASOPHARYN: Influenza Virus A & B Rapid Smear - COMP Recent Imaging Studies: Carotid Doppler study: There are 50-69% stenoses involving the internal carotid arteries bilaterally by sonographic criteria. Assessment/Plan Assessment/Plan Assessment: 1. Atrial fibrillation with failed cardioversion 2. Pericardial effusion 3. Acute diastolic heart failure, improved on Lasix 4. Increasing BUN and creatinine on Lasix Plan: * Appreciate Dr. Coburn's EP consult * Amiodarone 200 mg 3 times a day, and diltiazem [address] Coburn * Would change Lasix to 20 mg by mouth daily * Continue other cardiac medications * Repeat echocardiogram Continue telemetry? Yes
[2017-03-03 14:18] VITALS: BP 100/62
--- NOTE | 2017-03-03 17:34 | PN- Student ---
Subjective Subjective: Patient is feeling better today. States that she has improved breathing and is not as short of breath or fatigued. Also has been tolerating diet with minimal to no nausea. Patient also moving her bowels with no discomfort. Denies CP, palpitations, increased LE edema, n/v/d, constipation, or any urinary symptoms. Objective Objective: Vital Signs Date Time Temp Pulse Resp B/P B/P Pulse O2 O2 Flow FiO2 Mean Ox Delivery Rate 03/03 1647 102 114/66 03/03 1600 91 Room Air Room Air 03/03 1418 98.1 90 20 100/62 91 Room Air 03/03 0800 Nasal 1.0L Cannula 03/03 0646 98.0 96 20 120/68 94 Nasal Cannula 03/03 0444 100 130/72 03/03 0000 Nasal 1.0L Cannula 03/02 2238 97.5 95 20 112/66 96 Nasal Cannula 03/02 2137 92 118/70 03/02 2122 Nasal 1.0L Cannula 03/02 1822 98.0 105 20 146/80 96 Nasal Cannula Intake & Output 03/03 1600 03/03 0800 03/03 0000 Intake Total 560 332 615 Output Total 400 800 Balance 160 -468 615 Intake, IV 12 15 Intake, Oral 560 320 600 Number 1 Bowel Movements Output, Urine 400 800 Physical Exam General appearance: AOx3. Well-appearing, no apparent distress. Cooperative. HEENT: AT/NC. Conjunctiva clear, sclera white. EMOI. Nasal canals patent. Gross hearing intact. Neck: Trachea midline. Supple. No lymphadenopathy. No JVD. No thyromegaly. No bruits. Chest: Lungs CTA bilaterally. No wheezes, rales, rhonchi. Heart: Irregularly irregular. Normal S1, S2. No murmurs, rubs, or gallops appreciated. Abdomen: Protuberant. Non-distended. Normoactive bowel sounds. Soft, NTTP, no obvious masses. No organomegaly. : Deferred. MSK: AROM of upper and lower extremities full and painless. Strength of LE 5/5, bilaterally. No lower extremity edema. No cyanosis. Skin: 5 cm x 5 cm dry patch, mildy erythematous with silver scale on low back. Warm and dry. Neuro: Appropriate speech and eye contact. Good affect. CN 3-12 intact. No focal neuro deficits. Results Results: Laboratory Tests 03/03/17 1650: Cyclic Citrull Peptide Pending 03/03/17 0949: Sodium Cancelled, Potassium Cancelled, Chloride Cancelled, Carbon Dioxide Cancelled, Anion Gap Cancelled, BUN Cancelled, Creatinine Cancelled, BUN/ Creatinine Ratio Cancelled 03/03/17 0640: Anion Gap 17 H, Estimated GFR 36 L, BUN/Creatinine Ratio 13.6, C-Reactive Prot , Quant 5.1 H, Triglycerides 88, Cholesterol 154, LDL Cholesterol, Calc 79, HDL Cholesterol 58, Cholesterol/HDL Ratio 3, CBC w Diff NO MAN DIFF REQ, RBC 4.91, MCV 78.2 L, MCH 25.1 L, RDW 15.5 H, MPV 9.9, Gran % 77.3 H, Lymphocytes % 10.3 L, Monocytes % 12.2 H, Eosinophils % 0, Basophils % 0.2, Absolute Granulocytes 11.6 H, Absolute Lymphocytes 1.6, Absolute Monocytes 1.8 H, Absolute Eosinophils 0, Absolute Basophils 0, PUBS MCHC 32.0 L, Rheum Factor Semi-Quant < 8.6 03/03/17 0600: CARMELO Titer Pending, Anti-Nuclear Antibody Pending 03/02/17 0535: Troponin I < 0.01 03/02/17 0120: Troponin I < 0.01 03/01/17 1735: Anion Gap 17 H, Estimated GFR 47 L, BUN/Creatinine Ratio 11.8, Glucose 113 H, Lactic Acid 1.2, Calcium 9.5, Total Bilirubin 0.5, AST 16, ALT 28, Alkaline Phosphatase 107, Troponin I < 0.01, [id number] Pept 3240 H, Total Protein 7.0, Albumin 3.8, Globulin 3.2, Albumin/Globulin Ratio 1.2, Lipase 67, CBC w Diff NO MAN DIFF REQ, RBC 4.90, MCV 78.5 L, MCH 25.0 L, RDW 15.6 H, MPV 9.5, Gran % 79.7 H, Lymphocytes % 9.8 L, Monocytes % 10.1 H, Eosinophils % 0.1, Basophils % 0.3, Absolute Granulocytes 8.8 H, Absolute Lymphocytes 1.1 L, Absolute Monocytes 1.1 H, Absolute Eosinophils 0, Absolute Basophils 0, PUBS MCHC 31.8 L Microbiology 03/03 1137 LOWER RESP: Respiratory Culture - COLB 03/03 113 LOWER RESP: Gram Stain - COLB 03/02 1818 LOWER RESP: Respiratory Culture - CAN Cancelled: NUMBER OF SQUAMOUS CELLS INDICATES POOR QUALITY SPECIMEN 03/02 1818 LOWER RESP: Gram Stain - CAN Cancelled: NUMBER OF SQUAMOUS CELLS INDICATES POOR QUALITY SPECIMEN 03/02 0550 BLOOD: Blood Culture - RES 03/02 0535 BLOOD: Blood Culture - RES 03/01 2310 NASOPHARYN: Influenza Virus A & B Rapid Smear - COMP Assessment/Plan Assessment: 86 year old female with a PMHx significant for HTN, HLD, hypothyroidism, non- occlusive CAD, cholecysectomy, drug-induced pancreatitis, and recent admission for new onset atrial fibrillation, rate controlled on diltiazem s/p unsuccessful cardioversion, discharged on 02/27/17. Patient presented to [place] ED on for diffuse abdominal discomfort, nausea, and increasing shortness of breath. Currently being monitored and treated for acute congestive heart failure with diastolic dysfunction. WBC count increased from 11.1 to 15. This could be reactive to the treatment of steroids given yesterday. She reamins afebrile and sputum cultures still pending. Patient is on Azithromycin IV for bronchitis but will monitor labs, sputum/blood cultures, and vital signs any signs of infectious origin. Cardiology has recommended rheumatology consult for further evaluation of pericardial effusion and possible relationship to patient's rheumatoid arthritis ; Immunology labs of CARMELO, RF, and C-ANCA have been ordered and are pending. Cardiology also recommends starting Amiodarone 200mg TID, increase cardizem to 300mg daily for better rate control, transition from IV to PO Lasix 20mg daily, and to repeat echocardiogram to rule out hemorrhagic effusion. Plan: #1. CHF Exacerbation * Transition Lasix from IV to PO 20mg daily for fluid retention (monitor LFTs) * Continue tele observation * Continue other cardiac medications #2. Dyspnea * Currently on supplemental oxygen, 1L NC -- taper to room air. * Repeat sputum culture * Negative influenza test; blood cultures pending, will f/u * Continue azithromycin 500mg PO daily x2 more days * CXR shows RLL consolidation; CTA chest on prior admission unremarkable #3. Abdominal Discomfort/Nausea * Unclear etiology - possibly due to atrial fibrillation * Continue omeprazole * Continue Ondansetron * Consider GI consult if patient's symptoms do not improve #4. New Onset Atrial Fibrillation with Rapid Ventricular Rate * Increase Diltiazem to 300mg PO once daily * Begin Amiodarone 200mg TID for rhythm control * Continue Apixaban 5mg PO BID * Continue Aspirin. * Repeat echocardiogram to rule out hemorrhagic pericardial effusion ( considering her anticoagulation) * Monitor immunology labs recommended by rheumatology - CARMELO, Anti-CCP, RF #5. Hypertension * Continue Losartan Potassium #6. Hypothyroidism * Continue Levothyroxine #7. Anxiety/Depression * Continue Buspirone HCl * Continue Venlafaxine HCl XR Consider discharge tomorrow if patient remains stable. Code Status: FULL CODE DVT Prophylaxis: Apixiban (for AFIB) Diet: Heart healthy, fluid restriction Pain management PRN FLASH Powers
[2017-03-03 22:12] VITALS: BP 122/68
--- NOTE | 2017-03-04 07:17 | PN- Housestaff ---
Assessment/Plan Assessment: 86-year-old lady with past medical history significant for recently diagnosed atrial fibrillation, hypertension, hypothyroidism, chronic back pain, discharge from [facility] 02/27/2017 presents to the ED for dyspnea and abdominal pain.
[2017-03-04 07:22] VITALS: BP 118/64
[2017-03-04 08:03] LABS: ABSOLUTE BASOPHIL COUNT 0 /CUMM (0.0-0.2); ABSOLUTE EOSINOPHIL COUNT 0 /CUMM (0.0-0.7); ABSOLUTE GRANULOCYTE CT 6.3 /CUMM (1.4-6.5); ABSOLUTE LYMPH COUNT 1.6 /CUMM (1.2-3.4); ABSOLUTE MONOCYTE COUNT 1.5 /CUMM (0.10-0.60); BASOPHIL % 0.4 % (0.0-2.0); EOSINOPHIL % 0.1 % (0-5); GRANULOCYTE % 66.6 % (42.2-75.2); HEMATOCRIT 34.6 % (37-47); MEAN CORPUSCULAR HGB 25.4 PG (27.0-31.0); MEAN CORPUSCULAR HGB CONC 32.7 G/DL (33.0-37.0); MEAN CORPUSCULAR VOLUME 77.9 FL (81.0-99.0); MEAN PLATELET VOLUME 9.6 FL (7.4-10.4); PLATELET COUNT 446 /CUMM (130-400); RBC DISTRIBUTION WIDTH 15.5 % (11.5-14.5); RED BLOOD CELL CT 4.44 /CUMM (4.20-5.40); WHITE BLOOD CELL COUNT 9.5 /CUMM (4.8-10.8)
--- NOTE | 2017-03-04 09:53 | PN-Observation ---
Hamlet MEIER,[facility] 03/04/17 0952: Observation Note Observation Note _ I have personally examined VIRGIE MENDES. her disposition is uncertain at this time. Before a determination can be made, she requires continued observation for the following reasons [nonspecific abdominal pain/nausea and dyspnea]. Assessment/Plan Assessment: 86-year-old lady with past medical history significant for recently diagnosed atrial fibrillation, hypertension, hypothyroidism, chronic back pain, discharge from [facility] 02/27/2017 presents to the ED for dyspnea and abdominal pain. Problem List: 1. Atrial fibrillation Qualifiers Atrial fibrillation type: unspecified Qualified Code: I48.91 - Unspecified atrial fibrillation Plan: Plan: Abdominal Pain: * Unclear in etiology. Patient reports that her pain has subsided since she came in. Physical exam in unremarkable. * continue oral PPI * It is possible that her abdominal pain could be attributed to her atrial fibrilliation. * She can follow GI as an outpatient for further work up or treatment. * Zofran prn for nausea. Dyspnea: * CXR on admission showed opacity in the right base with airspace consolidation. It was initially concerning for pneumonia. However, the patient has been afebrile and her white count is normal. It was high initially but that could be attributed to the steroids. * Azithromycin was given for a total of 3 days. * Influenza test was negative * Blood cultures have been so far negative. History of Atrial Fibrilliation: * Continue Apixaban * Increase Cardizem to 300mg * Continue amiodarone 300mg TID for rhythm control * Repeat echocardiogram to shows decrease in pericardial effusion. * Anti CCP, * Anti Rheumatoid Factor and CARMELO was negative. Diet: * Heart Healthy DVT Prophylaxis: * On Apixaban Code Status: Full Code Subjective Follow-up For: Abdominal Pain Nausea Complaints: no complaints Tele-Events Since Last Visit: A.fib with HR 80s-100. No overnight events. Subjective: Patient was seen and examined at bedside. She states having a persistent cough with clear mucus production. She mentions that her daughter does not want her to come home while she still has the cough. Review of Systems Constitutional: Reports: no symptoms. Respiratory: Reports: cough. Objective Last 24 Hrs of Vital Signs/I&O Vital Signs Date Time Temp Pulse Resp B/P B/P Pulse O2 O2 Flow FiO2 Mean Ox Delivery Rate 03/04 1050 110 130/70 12/20 1050 110 130/70 03/04 0800 Room Air 03/04 0722 98.4 90 18 118/64 94 Room Air 03/04 0000 Room Air 03/03 2212 98.2 101 18 122/68 93 Room Air 03/03 2110 101 122/68 03/03 2109 101 122/68 03/03 1647 102 114/66 03/03 1600 91 Room Air Room Air 03/03 1418 98.1 90 20 100/62 91 Room Air Intake & Output 03/04 1600 03/04 0800 03/04 0000 Intake Total 120 700 Output Total 450 550 Balance -330 150 Intake, Oral 120 700 Output, Urine 450 550 Physical Exam General Appearance: Alert, Oriented X3, Cooperative, No Acute Distress Skin: No Rashes, No Breakdown Skin Temp/Moisture Exam: Warm/Dry Sepsis Skin Exam (color): Normal for Ethnicity HEENT: Atraumatic Cardiovascular: Normal S1, Normal S2, No Murmurs, irregular Lungs: Clear to Auscultation, Normal Air Movement Abdomen: Soft, No Tenderness Neurological: Normal Speech Extremities: No Edema Felicia Avilez 03/04/17 1106: Attending Addendum Attending Brief Note Patient seen/examined bedside. Patient denies new complaints. d/thu cardiology about echo results and pericardial effusion which is not increasing as there was concern of hemorrhage. Patient HR remains controlled on amiodarone 200 tid and cardizem. Patient completed azithromycin for bronchitis. Provide anti nausea meds prn. She is on PPI. Patient is on eliquis for anticoagulation. Patient is stable for discharge. Referral for GI as outpatient.
--- NOTE | 2017-03-04 11:58 | PN- Cardiology ---
Subjective Subjective: The patient is stable from a cardiac standpoint, however, she continues to have episodes of coughing, nausea, and "vomiting". Objective Vital Signs and I&Os Vital Signs Date Time Temp Pulse Resp B/P B/P Pulse O2 O2 Flow FiO2 Mean Ox Delivery Rate 03/04 1050 110 130/70 03/04 1050 110 130/70 03/04 0800 Room Air 03/04 0722 98.4 90 18 118/64 94 Room Air 03/04 0000 Room Air 03/03 2212 98.2 101 18 122/68 93 Room Air 03/03 2110 101 122/68 03/03 2109 101 122/68 03/03 1647 102 114/66 03/03 1600 91 Room Air Room Air 03/03 1418 98.1 90 20 100/62 91 Room Air Intake & Output 03/04 1600 03/04 0800 03/04 0000 03/03 1600 03/03 0800 03/03 0000 Intake Total 120 700 560 332 615 Output Total 450 550 400 800 Balance -330 150 160 -468 615 Intake, IV 12 15 Intake, Oral 120 700 560 320 600 Number 1 Bowel Movements Output, Urine 450 550 400 800 Current Medications: Current Medications Sig/Peter Start time Last Medication Dose Route Stop Time Status Admin Amiodarone HCl 200 MG TID 03/03 0248 AC 03/04 PO 1050 Apixaban 5 MG BID 03/01 2240 AC 03/04 PO 1050 Aspirin Buffered 81 MG QAM 03/02 1000 AC 03/04 PO 1050 Azithromycin 500 MG DAILY 03/02 1000 AC 03/04 PO 1050 Buspirone HCl 10 MG BID 03/01 2240 AC 03/04 PO 1051 Diltiazem HCl 300 MG DAILY 03/03 1000 AC 03/04 PO 1051 Furosemide 20 MG DAILY 03/04 1000 CAN IV Furosemide 20 MG DAILY 03/04 1000 AC 03/04 PO 1051 Furosemide 20 MG 7:30 AM, & 4:30 PM 03/02 2000 DC 03/03 IV 0636 Levothyroxine Sodium 0.112 MG DAILY AC 03/02 0700 AC 03/04 PO 0506 Losartan Potassium 50 MG BID 03/01 2315 AC 03/04 PO 1050 Omeprazole 40 MG DAILY 03/01 2145 AC 03/04 PO 1050 Ondansetron HCl 4 MG ONCE ONE 03/04 09 DC 03/04 PO 03/04 0931 0934 Ondansetron HCl 4 MG ONCE ONE 03/03 1830 DC 03/03 PO 03/03 1831 182 Ondansetron HCl 4 MG .STK-MED ONE 03/03 1822 DC IM 03/03 1823 Venlafaxine HCl 37.5 MG QPM 03/02 0145 AC 03/03 PO 2107 Results Last 48 Hrs of Labs/Mics: Laboratory Tests 03/04/17 0635: Anion Gap 14, Estimated GFR 31 L, BUN/Creatinine Ratio 15.0, CBC w Diff NO MAN DIFF REQ, RBC 4.44, MCV 77.9 L, MCH 25.4 L, RDW 15.5 H, MPV 9.6, Gran % 66.6, Lymphocytes % 17.3 L, Monocytes % 15.6 H, Eosinophils % 0.1, Basophils % 0.4, Absolute Granulocytes 6.3, Absolute Lymphocytes 1.6, Absolute Monocytes 1.5 H, Absolute Eosinophils 0, Absolute Basophils 0, PUBS MCHC 32.7 L 03/03/17 1650: Cyclic Citrull Peptide Pending 03/03/17 0949: Sodium Cancelled, Potassium Cancelled, Chloride Cancelled, Carbon Dioxide Cancelled, Anion Gap Cancelled, BUN Cancelled, Creatinine Cancelled, BUN/ Creatinine Ratio Cancelled 03/03/17 0640: Anion Gap 17 H, Estimated GFR 36 L, BUN/Creatinine Ratio 13.6, C-Reactive Prot , Quant 5.1 H, Triglycerides 88, Cholesterol 154, LDL Cholesterol, Calc 79, HDL Cholesterol 58, Cholesterol/HDL Ratio 3, CBC w Diff NO MAN DIFF REQ, RBC 4.91, MCV 78.2 L, MCH 25.1 L, RDW 15.5 H, MPV 9.9, Gran % 77.3 H, Lymphocytes % 10.3 L, Monocytes % 12.2 H, Eosinophils % 0, Basophils % 0.2, Absolute Granulocytes 11.6 H, Absolute Lymphocytes 1.6, Absolute Monocytes 1.8 H, Absolute Eosinophils 0, Absolute Basophils 0, PUBS MCHC 32.0 L, Rheum Factor Semi-Quant < 8.6 03/03/17 0600: CARMELO Titer ND, Anti-Nuclear Antibody NEG 1:40 IFA ASSAY Assessment/Plan Assessment/Plan Assessment: 1. Atrial fibrillation with failed cardioversion 2. Pericardial effusion 3. Acute diastolic heart failure, improved on Lasix 4. Increasing BUN and creatinine on Lasix Plan: * Appreciate Dr. Coburn's EP consult * Amiodarone 200 mg 3 times a day, and diltiazem [address] Coburn * Continue oral Lasix * Continue other cardiac medications * Repeat echocardiogram shows that the pericardial effusion has actually decreased slightly in size. No other changes from the prior echocardiogram.
[2017-03-04] MEDS ORDERED: ZOFRAN4 M2 PO (12:04)
[2017-03-04] MEDS ORDERED: AMIODARONE HCL200 M1 PO (12:04)
[2017-03-04] MEDS ORDERED: CARDIZEM CD300 M1 PO (12:04)
[2017-03-04 14:29] VITALS: BP 94/60
--- NOTE | 2017-03-04 15:22 | PN- Student ---
Subjective Subjective: Patient states that last night after dinner she had some increased nausea without vomiting and was given an oral medication by the nurse which made the nausea subside. Denies further nausea. Patient also reports that her coughing is worse with more production. Otherwise patient had no overnight events and reports feeling overall well. Denies any CP, palpitations, increased SOB or LE edema. Objective Objective: Vital Signs Date Time Temp Pulse Resp B/P B/P Pulse O2 O2 Flow FiO2 Mean Ox Delivery Rate 03/04 1429 98.3 104 18 94/60 95 Room Air 03/04 1050 110 130/70 03/04 1050 110 130/70 03/04 0800 Room Air 03/04 0722 98.4 90 18 118/64 94 Room Air 03/04 0000 Room Air 03/03 2212 98.2 101 18 122/68 93 Room Air 03/03 2110 101 122/68 03/03 2109 101 122/68 03/03 1647 102 114/66 03/03 1600 91 Room Air Room Air Intake & Output 03/04 1600 03/04 0800 03/04 0000 Intake Total 120 700 Output Total 450 550 Balance -330 150 Intake, Oral 120 700 Output, Urine 450 550 Physical Exam General appearance: AOx3. Well-appearing, no apparent distress. Cooperative. HEENT: AT/NC. Conjunctiva clear, sclera white. EMOI. Neck: Trachea midline. Supple. No lymphadenopathy. No JVD. Chest: Lungs CTA bilaterally. No wheezes, rales, rhonchi. Heart: Irregularly irregular. Normal S1, S2. No murmurs, rubs, or gallops appreciated. Abdomen: Protuberant. Normoactive bowel sounds. Soft, NTTP, no obvious masses. No organomegaly. MSK: AROM of upper and lower extremities full and painless. Strength of LE 5/5, bilaterally. No lower extremity edema. No cyanosis. Skin: 5 cm x 5 cm dry patch, mildy erythematous with silver scale on low back. Warm and dry. Neuro: Appropriate speech and eye contact. Good affect. CN 3-12 intact. No focal neuro deficits. Results Results: Laboratory Tests 03/04/17 0635: Anion Gap 14, Estimated GFR 31 L, BUN/Creatinine Ratio 15.0, CBC w Diff NO MAN DIFF REQ, RBC 4.44, MCV 77.9 L, MCH 25.4 L, RDW 15.5 H, MPV 9.6, Gran % 66.6, Lymphocytes % 17.3 L, Monocytes % 15.6 H, Eosinophils % 0.1, Basophils % 0.4, Absolute Granulocytes 6.3, Absolute Lymphocytes 1.6, Absolute Monocytes 1.5 H, Absolute Eosinophils 0, Absolute Basophils 0, PUBS MCHC 32.7 L 03/03/17 1650: Cyclic Citrull Peptide Pending Microbiology 03/04 0800 LOWER RESP: Respiratory Culture - CAN Cancelled: NUMBER OF SQUAMOUS CELLS INDICATES POOR QUALITY SPECIMEN 03/04 0800 LOWER RESP: Gram Stain - CAN Cancelled: NUMBER OF SQUAMOUS CELLS INDICATES POOR QUALITY SPECIMEN Assessment/Plan Assessment: 86 year old female with a PMHx significant for HTN, HLD, hypothyroidism, non- occlusive CAD, cholecysectomy, drug-induced pancreatitis, and recent admission for new onset atrial fibrillation, rate controlled on diltiazem s/p unsuccessful cardioversion, discharged on 02/27/17. Patient presented to [place] ED on for diffuse abdominal discomfort, nausea, and increasing shortness of breath. Currently on observation and being treated for acute congestive heart failure with diastolic dysfunction. Patient is now without oxygen supplementation and saturating 94% on room air. WBC count has decreased from 15 to 9.5. Sputum cultures cancelled due to increased number of epithelial cells and blood cultures show no growth after 2 days. Patient has completed 3 days of Azithromycin. Rheumatoid factor and CARMELO are negative, Anti-CCP still pending. Repeat echocardiogram done last night (03/03). Dr. Craig states that the pericardial effusion has decreased in size and remains stable. No suspicion for hemorrhagic effusion. Plan: #1. CHF Exacerbation * Continue PO Lasix 20mg (monitor LFTs) * Continue tele observation * Continue other cardiac medications #2. Dyspnea / Cough * Patient saturating 94% ORA * CXR shows RLL consolidation which, along with her respiratory symptoms, was initially suspicious for pneumonia. However, patient remains afebrile and WBC count has decreased from 15 to 9.5. The slight increase yesterday from 11 to 15 may have been refractory to prior steroid treatment in the ED. * Negative influenza test * Blood cultures negative after one day * Course of azithromycin 500 mg IV completed after 3 days. #3. Abdominal Discomfort/Nausea * Unclear etiology - possibly due to atrial fibrillation * Continue omeprazole * Continue Ondansetron * Consider GI consult if patient's symptoms do not improve #4. New Onset Atrial Fibrillation with Rapid Ventricular Rate * Continue Diltiazem to 300mg PO once daily * Continue Amiodarone 200mg TID for rhythm control * Continue Apixaban 5mg PO BID * Continue Aspirin. * Repeat echocardiogram reveals decrease in pericardial effusion thus no suspicion for hemorrhagic effusion -- f/u with Rheumatology outpatient * Monitor immunology labs - RF, CARMELO negative. Anti-CCP pending. #5. Hypertension * Continue Losartan Potassium #6. Hypothyroidism * Continue Levothyroxine #7. Anxiety/Depression * Continue Buspirone HCl * Continue Venlafaxine HCl XR -Patient to be discharged today and will f/u outpatient with cardiology, rheumatology, and PCP (Dr. Huynh) as needed. -Patient advised to return to ED if increasing SOB, lower extremity edema, fevers, or if chest pain, palpitations, or increased fatigue. -Patient advised to pickle pumper OTC robitussin or alternative cough suppressant for cough. -Per case management, patient cannot have home care or go to [facility] and is understanding of this. -Physical therapy saw patient and gave her home exercises which patient agrees to do as she does not want to have to pay for private health care. Code Status: FULL CODE DVT Prophylaxis: Apixiban (for AFIB) Diet: Heart healthy, fluid restriction Pain management PRN FLASH Powers
--- NOTE | 2017-03-04 18:07 | ECHOCARDIOGRAM REPORT ---
VIRGIE MENDES Age: 86 : 1930 Gender: F Exam Date: 03/03/2017 19:50 Exam Location: [address] Ht (in): 68 Wt (lb): 200 BSA: 2.11 BP: 120 / 68 Ordering Physician: Roberto Carlos Mcnulty MD Referring Physician: Emmanuel Mcintosh MD Technologist: Susan Vazquez [facility] Room Number: 188 Indications: PERICARDIAL EFFUSION Rhythm: Atrial fibrillation Technical Quality: Fair FINDINGS Left Ventricle Normal size left ventricle. No obvious regional wall motion abnormalities. Normal left ventricular ejection fraction estimated at 60-65%. Right Ventricle Right ventricle not well visualized, grossly normal. Right Atrium Normal right atrial size. Left Atrium Left atrial dilatation. Mitral Valve Mitral valve thickened. Mitral annular calcification. Mild mitral regurgitation. Aortic Valve Trileaflet aortic valve. Diffuse thickening (sclerosis) of the aortic valve cusps without reduced excursion. Tricuspid Valve Tricuspid valve not well visualized, grossly normal. Mild-to- moderate tricuspid regurgitation. Pulmonic Valve Pulmonic valve not well visualized, grossly normal. Pericardium Moderate pericardial effusion. Great Vessels Aortic root and proximal ascending aorta not well visualized, grossly normal. CONCLUSIONS 1. This was a technically difficult study. 2. Moderate aortic sclerosis is present. There does not appear to be any significant valvular stenosis present. 3. Thickening of the mitral leaflets is present with annular calcification and mild mitral insufficiency with left atrial enlargement. 4. A small to moderate sized circumferential pericardial effusion is present which appears to be hemodynamically insignificant. 5. The left ventricular chamber size and systolic function appear normal. There are no obvious resting wall motion abnormalities. 6. The right heart structures were not optimally visualized. Mild to moderate tricuspid insufficiency is present with no significant pulmonary hypertension. Mackenzie Craig M.D. (Electronically Signed) Final Date: 04 March 2017 18:07 MEASUREMENTS (Male / Female) Normal Values 2D ECHO LV Diastolic Diameter PLAX 3.6 cm 4.2 - 5.9 / 3.9 - 5.3 cm LV Systolic Diameter PLAX 2.3 cm 2.1 - 4.0 cm LV Fractional Shortening PLAX 36.1 % 25 - 46 % LV Ejection Fraction 2D Teich 66.7 % IVS Diastolic Thickness 1.2 cm LVPW Diastolic Thickness 1.1 cm LV Relative Wall Thickness 0.6 RV Internal Dim ED PLAX 3.2 cm 1.9 - 3.8 cm LVOT Diameter 2.0 cm Aortic Root Diameter 3.3 cm LA Systolic Diameter LX 4.3 cm 3.0 - 4.0 / 2.7 - 3.8 cm LA Volume 31.0 cm 18 - 58 / 22 - 52 cm Ascending Aorta Diameter 3.8 cm DOPPLER AV Peak Velocity 191.0 cm/s AV Peak Gradient 14.6 mmHg AV Mean Velocity 128.0 cm/s AV Mean Gradient 8.0 mmHg AV Velocity Time Integral 33.7 cm LVOT Peak Velocity 122.0 cm/s LVOT Peak Gradient 6.0 mmHg LVOT Mean Velocity 75.4 cm/s LVOT Mean Gradient 3.0 mmHg LVOT Velocity Time Integral 21.3 cm LVOT Stroke Volume 66.9 cm AV Area Cont Eq vti 2.0 cm AV Area Cont Eq pk 2.0 cm MV Peak Velocity 128.0 cm/s MV Peak Gradient 6.6 mmHg MV Mean Velocity 59.5 cm/s MV Mean Gradient 2.0 mmHg Mitral E Point Velocity 135.0 cm/s MV PHT Velocity 134.0 cm/s MV Deceleration [place] 415.0 cm/s MV Pressure Half Time 96.9 ms MV Area PHT 2.3 cm MV Deceleration Time 219.0 ms TR Peak Velocity 243.0 cm/s TR Peak Gradient 23.6 mmHg Right Atrial Pressure 5.0 mmHg Pulmonary Artery Systolic Pressu 28.6 mmHg Right Ventricular Systolic Press 28.6 mmHg PV Peak Velocity 101.0 cm/s PV Peak Gradient 4.1 mmHg PV Mean Velocity 72.3 cm/s PV Mean Gradient 2.0 mmHg PV Velocity Time Integral 18.3 cm LV E' Lateral Velocity 7.5 cm/s Mitral E to LV E' Lateral Ratio 18.0 LV E' Septal Velocity 6.1 cm/s Mitral E to LV E' Septal Ratio 22.0
== END 2017-03-04 17:40 ==
LOC: ERH 15:21 → ERHI 20:10 → 1NO 20:10 → ERHI 03-02 08:58 → ENTRNSPT 03-02 17:29 → CMPTRNSPT 03-02 18:06 → 1NO 03-02 18:15 → ENPENDDIS 03-04 13:58 → 1NO 03-04 17:40
PROVIDERS: Internal Medicine; Physician Assistant
DX: I48.91 Unspecified atrial fibrillation (principal); Z79.01 Long term (current) use of anticoagulants; R10.9 Unspecified abdominal pain; R06.00 Dyspnea, unspecified; I10 Essential (primary) hypertension; E03.9 Hypothyroidism, unspecified; Z79.82 Long term (current) use of aspirin
CPT/HCPCS: 1255; 1328; 1530; 1748; 86200; 36415; 82436; 86431; 87040; 87070; 87804; 87804-59; 93005; 93010; 93306; 96374; 96375; 96376; G0378; J0456; J1940; J2405; J2920; J3101; J7040